=== PATIENT | male | born 1975 | race Caucasian/White ===

== ENCOUNTER 2020-01-02 13:23 | Emergency (ER) | payer SELFPAY ==
[2020-01-02 13:47] VITALS: BP 128/79; PULSE 77; RESP 16; TEMP 36.8; O2SAT 98; BMI 33.7
--- NOTE | 2020-01-02 14:30 | HMH.EDUTC ---
[facility] Disposition Clinical Impression: Sinusitis Qualifiers: Sinusitis location: unspecified location Chronicity: acute Recurrence: non-recurrent Qualified Code(s): J01.90 - Acute sinusitis, unspecified Disposition: Home, Self-Care Condition on Discharge: Good Instructions: Sinusitis, DI for Sinusitis Additional Instructions: Drink plenty of fluids. Take tylenol or ibuprofen for pain or fever. Take the medications as directed. Follow up with your regular doctor. GO TO THE ER FOR ANY WORSENING SYMPTOMS Prescriptions: Brompheniramine/Pseudoephed/Dm [Bromfed Dm Cough Syrup] 5 ml PO Q6HP PRN #240 syrup PRN Reason: Cough Transmission Status: Received by [facility] Fluticasone Propionate [Flonase 50mcg nasal spray 16gm] 1 spr NS BID 30 Days #1 bottle Transmission Status: Received by [facility] Azithromycin [Z-Shar 250mg Tab*] 250 mg PO UD DOSE PK #6 tab Transmission Status: Received by [id number] Referrals: Carl Paiz MD [Primary Care Provider] - Forms: Work/School Release Time of Disposition: 14:36 Medical Decision Making - Medical Records Medical records reviewed: No: I reviewed the patient's medical records. - Ralph Inquiry Pt receiving controlled substance: No Vital Signs: 01/02/20 13:47 Temperature 98.2 F Temperature Source Oral Pulse Rate [Right Brachial] 77 Respiratory Rate 16 Blood Pressure [Right Arm] 128/79 Blood Pressure Mean [Right Arm] 95 Blood Pressure Source [Right Arm] Automatic Cuff Blood Pressure Position [Right Arm] Sitting 02 Sat by Pulse Oximetry 98 Oxygen Delivery Method Room Air [facility] HPI - General Stated complaint: head congestion Time Seen by Provider: 01/02/20 14:00 Mode of Arrival: Ambulatory Source of Information: Patient Limitations: No Limitations Description of Symptoms (Recalled from Triage Doc. by RN): PATIENT C/O SINUS PRESSURE AND PRODUCTIVE COUGH WITH CLEAR-YELLOW SPUTUM. REQUESTING NOTE FOR WORK HEENT Symptoms (Recalled from RN notes): Yes Resp Symptoms (Recalled from RN notes): Yes Skin Symptoms (Recalled from RN notes): No MS Symptoms (Recalled from RN notes): No Functional Status (Recalled from RN notes): WNL - History of Present Illness Provider Complaint: He c/o 2 days of worsening sinus congestion and bilateral ear pain. He denies any cough. He states that every year at this time he gets a sinus infection like this. He denies any known exposure to COVID-19. - Related Data Previous Rx's Medication Instructions Recorded Azithromycin [Z-Shar 250mg Tab*] 250 mg PO UD DOSE PK #6 tab 01/02/20 Brompheniramine/Pseudoephed/Dm 5 ml PO Q6HP PRN #240 syrup 01/02/20 [Bromfed Dm Cough Syrup] Fluticasone Propionate [Flonase 1 spr NS BID 30 Days #1 bottle 01/02/20 50mcg nasal spray 16gm] Allergies Allergy/AdvReac Type Severity Reaction Status Date / Time No Known Allergies Allergy Unverified 04/18/17 14:32 - Worker's Comp Is this a Worker's Comp case?: No [facility] History - Hepatitis A Screen Drug use history?: No High risk sexual behaviors?: No History of sexually transmitted infection?: No Currently employed?: No Childcare worker?: No Do you have indoor plumbing?: Yes Do you have electricity?: Yes Attestation statement:: This patient has been screened for Hepatitis A risk factors. I have reviewed the patient's past medical history: Yes Laterality Cases: Bilateral: Tonsillectomy - Social History Smoking Status: Never smoker Tobacco Type: smokeless tobacco # Packs/Day (cigarettes): 0 Alcohol Intake: never Occupational Status: other ROS Obtained: Yes All systems reviewed & no additional complaints - Constitutional Constitutional: Reports chills, Denies fever(s), Reports poor appetite, Reports malaise - Eyes Eyes: Denies eye discharge - ENT Ears, Nose, Mouth, and Throat: Reports as per HPI - Cardiovascular Cardiovascular: Denies chest pain - Respiratory Respiratory: No
[2020-01-02 14:39] VITALS: BP 128/79; PULSE 77; RESP 16; TEMP 36.8; O2SAT 98
== END 2020-01-02 14:53 | disposition home or self-care (01) ==
PROVIDERS: Emergency Provider Nurse Practitioner Family; PCP Family Medicine
DX: J01.90 Acute sinusitis, unspecified (principal)
CPT/HCPCS: 96372; 99201

== ENCOUNTER 2020-07-07 12:46 | Emergency (ER) | payer OTHER, SELFPAY ==
[2020-07-07 13:07] VITALS: BP 128/77; PULSE 72; RESP 14; TEMP 36.7; O2SAT 100; BMI 34.2
--- NOTE | 2020-07-07 13:11 | HMH.EDUTC ---
[facility] [place] Disposition Clinical Impression: Exposure to COVID-19 virus Sinusitis Qualifiers: Sinusitis location: unspecified location Chronicity: acute Recurrence: non-recurrent Qualified Code(s): J01.90 - Acute sinusitis, unspecified Disposition: Home, Self-Care Condition on Discharge: Good Instructions: Sinusitis, DI for Sinusitis, Preventing the Spread of Coronavirus Discharge Instructions Additional Instructions: Drink plenty of fluids. Take tylenol for pain or fever. Return if you begin to have difficulty breathing. Follow up with your regular doctor. GO TO THE ER FOR ANY WORSENING SYMPTOMS Prescriptions: Benzonatate [Tessalon Perle 100mg Cap] 100 mg PO TIDP PRN #30 cap PRN Reason: Cough Transmission Status: Received by [facility] Azithromycin [Z-Shar 250mg Tab*] 250 mg PO UD DOSE PK #6 tab Transmission Status: Received by [facility] Referrals: Carl Paiz MD [Primary Care Provider] - Forms: Work/School Release Time of Disposition: 13:45 Medical Decision Making - Medical Records Medical records reviewed: No: I reviewed the patient's medical records. - Ralph Inquiry Pt receiving controlled substance: No Vital Signs: 07/07/20 13:07 07/07/20 13:46 Temperature 98.1 F 98.1 F Temperature Source Oral Pulse Rate 72 Pulse Rate [Right Brachial] 72 Respiratory Rate 14 14 Blood Pressure 128/77 Blood Pressure [Right Arm] 128/77 Blood Pressure Mean [Right Arm] 94 Blood Pressure Source [Right Arm] Automatic Cuff Blood Pressure Position [Right Arm] Sitting 02 Sat by Pulse Oximetry 100 Oxygen Delivery Method Room Air [facility] HPI - General Stated complaint: sinus issues Time Seen by Provider: 07/07/20 13:12 Mode of Arrival: Ambulatory Source of Information: Patient Limitations: No Limitations Description of Symptoms (Recalled from Triage Doc. by RN): PATIENT C/O POSSIBLE SINUS INFECTION X 3 DAYS HEENT Symptoms (Recalled from RN notes): No Resp Symptoms (Recalled from RN notes): No Skin Symptoms (Recalled from RN notes): No MS Symptoms (Recalled from RN notes): No Functional Status (Recalled from RN notes): wnl - History of Present Illness Provider Complaint: He states that he has had sinus congestion for the past 3 days. His son tested positive for covid-19 yesterday. - Related Data Previous Rx's Medication Instructions Recorded Azithromycin [Z-Shar 250mg Tab*] 250 mg PO UD DOSE PK #6 tab 07/07/20 Benzonatate [Tessalon Perle 100mg 100 mg PO TIDP PRN #30 cap 07/07/20 Cap] Allergies Allergy/AdvReac Type Severity Reaction Status Date / Time No Known Allergies Allergy Unverified 04/18/17 14:32 - Worker's Comp Is this a Worker's Comp case?: No [facility] History - Hepatitis A Screen Drug use history?: No High risk sexual behaviors?: No History of sexually transmitted infection?: No Currently employed?: No Childcare worker?: No Do you have indoor plumbing?: Yes Do you have electricity?: Yes Attestation statement:: This patient has been screened for Hepatitis A risk factors. I have reviewed the patient's past medical history: Yes Laterality Cases: Bilateral: Tonsillectomy - Social History Smoking Status: Never smoker Tobacco Type: smokeless tobacco # Packs/Day (cigarettes): 0 Alcohol Intake: never Occupational Status: other ROS Obtained: Yes All systems reviewed & no additional complaints - Constitutional Constitutional: Denies chills, Denies fever(s), Reports poor appetite, Reports malaise - Eyes Eyes: Denies eye discharge - ENT Ears, Nose, Mouth, and Throat: Denies dizziness, Denies otalgia, Denies sore throat - Cardiovascular Cardiovascular: Denies chest pain - Respiratory Respiratory: Denies chest congestion, Denies cough, Denies dyspnea, Denies stridor, Denies wheezing - Gastrointestinal Gastrointestingal: Denies: abdominal pain, diarrhea, nausea, vomiting Physical Exam - General General appearance: rafael
[2020-07-07 13:46] VITALS: BP 128/77; PULSE 72; RESP 14; TEMP 36.7; O2SAT 100
--- NOTE | 2020-07-07 17:09 | PC.NURSE ---
PATIENT NOTIFIED OF POSITIVE COVID TEST RESULTS
== END 2020-07-07 13:49 | disposition home or self-care (01) ==
PROVIDERS: Emergency Provider Nurse Practitioner Family; PCP Family Medicine
DX: U07.1 COVID-19 (principal); J01.90 Acute sinusitis, unspecified
CPT/HCPCS: 99202; G0463; U0003

== ENCOUNTER 2020-08-18 18:49 | Emergency (ER) | payer OTHER, SELFPAY ==
[2020-08-18 18:59] VITALS: BP 127/92; PULSE 68; RESP 14; TEMP 36.9; O2SAT 97; BMI 34.8
--- NOTE | 2020-08-18 19:23 | HMH.EDUTC ---
[facility] [place] Disposition Clinical Impression: Viral syndrome Disposition: Home, Self-Care Condition on Discharge: Good Instructions: Preventing the Spread of Coronavirus Discharge Instructions Additional Instructions: Drink plenty of fluids. Take tylenol or ibuprofen for pain or fever. Follow up with your regular doctor. GO TO THE ER FOR ANY WORSENING SYMPTOMS Referrals: Carl Paiz MD [Primary Care Provider] - Forms: Work/School Release Time of Disposition: 19:32 Medical Decision Making - Medical Records Medical records reviewed: No: I reviewed the patient's medical records. - Ralph Inquiry Pt receiving controlled substance: No Vital Signs: 08/18/20 18:59 08/18/20 19:35 Temperature 98.4 F 98.4 F Temperature Source Oral Tympanic Pulse Rate 68 Pulse Rate [Right Brachial] 68 Respiratory Rate 14 14 Blood Pressure 127/92 H Blood Pressure [Right Arm] 127/92 H Blood Pressure Mean [Right Arm] 103 Blood Pressure Source Automatic Cuff Blood Pressure Source [Right Arm] Automatic Cuff Blood Pressure Position Sitting Blood Pressure Position [Right Arm] Sitting 02 Sat by Pulse Oximetry 97 Oxygen Delivery Method Room Air Room Air Orders (Tests/Meds): ORDERS Category Date Time Status Covid-19 Nasal PCR ([facility]) Routine Lab 08/18/20 19:00 Received [facility] [place] HPI - General Stated complaint: COVID TEST Time Seen by Provider: 08/18/20 19:24 Mode of Arrival: Ambulatory Source of Information: Patient Limitations: No Limitations Description of Symptoms (Recalled from Triage Doc. by RN): Covid test - taste & smell off HEENT Symptoms (Recalled from RN notes): No Resp Symptoms (Recalled from RN notes): Yes Skin Symptoms (Recalled from RN notes): No MS Symptoms (Recalled from RN notes): No Functional Status (Recalled from RN notes): wnl - History of Present Illness Provider Complaint: He states that for the past 2 days he has began to feel very bad, have body aches and he has lost his sense of taste and smell. He had covid-19 about 1 1/2 months ago. He denies any shortness of breath and chest pain. - Related Data Previous Rx's Medication Instructions Recorded Azithromycin [Z-Shar 250mg Tab*] 250 mg PO UD DOSE PK #6 tab 07/07/20 Benzonatate [Tessalon Perle 100mg 100 mg PO TIDP PRN #30 cap 07/07/20 Cap] Allergies Allergy/AdvReac Type Severity Reaction Status Date / Time No Known Allergies Allergy Unverified 04/18/17 14:32 - Worker's Comp Is this a Worker's Comp case?: No H History - Hepatitis A Screen Drug use history?: No High risk sexual behaviors?: No History of sexually transmitted infection?: No Currently employed?: No Childcare worker?: No Do you have indoor plumbing?: Yes Do you have electricity?: Yes Attestation statement:: This patient has been screened for Hepatitis A risk factors. I have reviewed the patient's past medical history: Yes Laterality Cases: Bilateral: Tonsillectomy - Social History Smoking Status: Never smoker Tobacco Type: smokeless tobacco # Packs/Day (cigarettes): 0 Alcohol Intake: never Occupational Status: other ROS Obtained: Yes All systems reviewed & no additional complaints - Constitutional Constitutional: Reports system reviewed and no additional complaints, except as docu - Eyes Eyes: Reports system reviewed and no additional complaints, except as docu - ENT Ears, Nose, Mouth, and Throat: Reports system reviewed and no additional complaints, except as docu - Cardiovascular Cardiovascular: Reports system reviewed and no additional complaints, except as docu - Respiratory Respiratory: Reports system reviewed and no additional complaints, except as docu - Gastrointestinal Gastrointestingal: Reports: system reviewed and no additional complaints, except as docu Physical Exam - General General appearance: alert, in no apparent distress - Head Head exam: atraumatic, normocephalic, normal inspection - Eye
[2020-08-18 19:35] VITALS: BP 127/92; PULSE 68; RESP 14; TEMP 36.9; O2SAT 97
== END 2020-08-18 19:35 | disposition home or self-care (01) ==
PROVIDERS: Emergency Provider Nurse Practitioner Family; PCP Family Medicine
DX: Z20.822 Contact with and (suspected) exposure to COVID-19 (principal); B34.9 Viral infection, unspecified; Z86.16 Personal history of COVID-19
CPT/HCPCS: 99202; G0463; U0003

== ENCOUNTER → 2021-01-25 09:20 | Outpatient (CLI) | payer SELFPAY | LOC: HMH.CTC 09:23 | PROVIDERS: PCP Family Medicine; Visit Provider Nurse Practitioner | DX: Z20.822 Contact with and (suspected) exposure to COVID-19 (principal) | CPT/HCPCS: C9803; U0003; U0005 ==

== ENCOUNTER → 2021-02-09 12:05 | Outpatient (CLI) | payer OTHER, SELFPAY | PROVIDERS: PCP Family Medicine; Visit Provider Nurse Practitioner | DX: Z20.822 Contact with and (suspected) exposure to COVID-19 (principal) | CPT/HCPCS: C9803; U0003; U0005 ==

== ENCOUNTER → 2021-05-04 13:55 | Outpatient (CLI) | payer OTHER, SELFPAY | PROVIDERS: Visit Provider Nurse Practitioner | DX: Z20.822 Contact with and (suspected) exposure to COVID-19 (principal) | CPT/HCPCS: C9803; U0003; U0005 ==

== ENCOUNTER 2021-07-13 17:31 | Emergency (ER) | payer SELFPAY ==
[2021-07-13 18:45] VITALS: BP 146/91; PULSE 64; RESP 16; TEMP 36.8; O2SAT 98; BMI 31.3
--- NOTE | 2021-07-13 18:50 | HMH.EDUTC ---
[facility] [place] Disposition Clinical Impression: Sinusitis Qualifiers: Sinusitis location: unspecified location Chronicity: acute Recurrence: non-recurrent Qualified Code(s): J01.90 - Acute sinusitis, unspecified Disposition: Home, Self-Care Condition on Discharge: Good Instructions: DI for Sinusitis Additional Instructions: Drink plenty of fluids. Take tylenol or ibuprofen for pain or fever. Take the medications as directed. Follow up with your regular doctor. GO TO THE ER FOR ANY WORSENING SYMPTOMS Don't start the oral steroids until tomorrow, since you had the shot here today. Prescriptions: Amoxicillin/Potassium Clav [Amox-Clav 875-125 mg Tablet] 1 tab PO BID #20 tab Transmission Status: Pending to [facility] methylPREDNISolone [Medrol] 4 mg PO DIRECTED 6 Days #21 packet Transmission Status: Pending to [facility] guaiFENesin [Mucinex 600mg tablet] 1 - 2 tab PO BIDP PRN #30 tab PRN Reason: Congestion Transmission Status: Pending to [facility] Referrals: Carl Paiz MD [Primary Care Provider] - Forms: Work/School Release Time of Disposition: 19:09 Medical Decision Making - Medical Records Medical records reviewed: No: I reviewed the patient's medical records. - Ralph Inquiry Pt receiving controlled substance: No Vital Signs: 07/13/21 18:45 Temperature 98.2 F Temperature Source Oral Pulse Rate [Left] 64 Respiratory Rate 16 Blood Pressure [Right Arm] 146/91 H Blood Pressure Mean [Right Arm] 109 02 Sat by Pulse Oximetry 98 Orders (Tests/Meds): ED MEDICATIONS Discontinued Medications Generic Name Dose Route Start Last Admin Trade Name Freq PRN Reason Stop Dose Admin Ceftriaxone Sodium 1 gm 07/13/21 18:57 07/13/21 19:05 Ceftriaxone 1gm Vial IM 07/13/21 18:58 1 gm ONCE ONE Administration Lidocaine HCl 0 ml 07/13/21 18:57 07/13/21 19:05 Lidocaine 1% 5ml Pf Vial IM 07/13/21 18:58 2 ml ONCE ONE Administration Methylprednisolone Sodium Succinate 125 mg 07/13/21 18:57 07/13/21 19:05 Methylprednisolone Sod Succ 125mg Vial IM 07/13/21 18:58 125 mg ONCE ONE Administration [facility] [place] HPI - General Stated complaint: SINUS INFECTION Time Seen by Provider: 07/13/21 18:50 Mode of Arrival: Ambulatory Source of Information: Patient Limitations: No Limitations Description of Symptoms (Recalled from Triage Doc. by RN): pt c/o sinus pressure and pain x1wk. HEENT Symptoms (Recalled from RN notes): Yes Resp Symptoms (Recalled from RN notes): No Skin Symptoms (Recalled from RN notes): No MS Symptoms (Recalled from RN notes): No Functional Status (Recalled from RN notes): wnl - History of Present Illness Provider Complaint: He states that he has had a sinus infection and sinus congestion for the past 1 week. He refuses a covid-19 test. - Related Data Previous Rx's Medication Instructions Recorded Azithromycin [Z-Shar 250mg Tab*] 250 mg PO UD DOSE PK #6 tab 07/07/20 Benzonatate [Tessalon Perle 100mg 100 mg PO TIDP PRN #30 cap 07/07/20 Cap] Amoxicillin/Potassium Clav 1 tab PO BID #20 tab 07/13/21 [Amox-Clav 875-125 mg Tablet] guaiFENesin [Mucinex 600mg tablet] 1 - 2 tab PO BIDP PRN #30 tab 07/13/21 methylPREDNISolone [Medrol] 4 mg PO DIRECTED 6 Days #21 07/13/21 packet Allergies Allergy/AdvReac Type Severity Reaction Status Date / Time No Known Allergies Allergy Unverified 04/18/17 14:32 - Worker's Comp Is this a Worker's Comp case?: No [facility] History - Hepatitis A Screen Drug use history?: No High risk sexual behaviors?: No History of sexually transmitted infection?: No Currently employed?: No Childcare worker?: No Do you have indoor plumbing?: Yes Do you have electricity?: Yes Attestation statement:: This patient has been screened for Hepatitis A risk factors. I have reviewed the patient's past medical history: Yes Laterality Cases: Bilateral: Tonsillectomy - Social
[2021-07-13 19:18] VITALS: BP 146/91; PULSE 64; RESP 16; TEMP 36.8
== END 2021-07-13 19:19 | disposition home or self-care (01) ==
PROVIDERS: Emergency Provider Nurse Practitioner Family; PCP Family Medicine
DX: J01.90 Acute sinusitis, unspecified (principal); F17.290 Nicotine dependence, other tobacco product, uncomplicated; Z79.52 Long term (current) use of systemic steroids
CPT/HCPCS: 96372; 99213; G0463; J0696

== ENCOUNTER 2021-09-17 07:03 | Emergency (ER) | payer SELFPAY ==
[2021-09-17 07:04] VITALS: BP 124/81; PULSE 51; RESP 18; TEMP 36.9; O2SAT 97; BMI 33.2
--- NOTE | 2021-09-17 07:16 | XR_ITS ---
FINAL REPORT CLINICAL HISTORY: Productive cough, chest congestion, hx of bronchit COMPARISON: January 29, 2016 FINDINGS: Two views of the chest were obtained. The heart size and pulmonary vascularity are within normal limits. The mediastinum is normal. No acute pulmonary abnormality is identified. There is no pneumothorax. The bony thorax is intact. IMPRESSION: No active cardiopulmonary disease. Reviewed, Interpreted and Dictated by Tyler Villegas III, MD Transcribed by Jack Chu Authenticated by Tyler Villegas III, MD on 09/17/2021 07:47:37 AM [facility]
--- NOTE | 2021-09-17 07:17 | PC.NURSE ---
Notified rad of CXR
--- NOTE | 2021-09-17 07:26 | HMH.EDURI ---
ED Disposition Clinical Impression: Bronchitis Disposition: Home, Self-Care Condition on Discharge: Good Instructions: DI for Acute Bronchitis Additional Instructions: and use meds plus fluids and see pcp for follow up Prescriptions: Minocycline HCl [Minocycline HCl 100mg Tab*] 100 mg PO BID #20 tab Transmission Status: Pending to [facility] predniSONE [Prednisone 20mg Tab] 20 mg PO BID #10 tab Transmission Status: Pending to [facility] Referrals: Carl Paiz MD [Primary Care Provider] - Forms: Work/School Release - Critical Care Critical Care Time: No Attestation: On 09/17/21, the high probability of a clinically significant, sudden or life threatening deterioration of the following system(s) required my full and direct attention, intervention and personal management. The time I documented below is in addition to time spent performing reported procedures but includes the following listed in this critical care notation. Medical Decision Making - Medical Records Medical records reviewed: Yes: I reviewed the patient's medical records. - Ralph Inquiry Pt receiving controlled substance: No Vital Signs: 09/17/21 07:04 09/17/21 07:48 Temperature 98.5 F Temperature Source Oral Pulse Rate 50 L Pulse Rate [Right Radial] 51 L Respiratory Rate 18 Blood Pressure [Right Arm] 124/81 Blood Pressure Mean [Right Arm] 95 Blood Pressure Source [Right Arm] Automatic Cuff Blood Pressure Position [Right Arm] Sitting 02 Sat by Pulse Oximetry 97 Oxygen Delivery Method Room Air - Lab Data Lab results reviewed: Yes: I reviewed the patient's lab results. Lab Results 09/17/21 07:30: SARS-CoV-2 (PCR) Not detected, Influenza A Untype (PCR) Not detected, Influenza Type B (PCR) Not detected Orders (Tests/Meds): ED MEDICATIONS Discontinued Medications Generic Name Dose Route Start Last Admin Trade Name Freq PRN Reason Stop Dose Admin Albuterol Sulfate 2 puff 09/17/21 07:35 09/17/21 07:47 Albuterol-Hfa 90mcg/Puff Inhaler 8gm 09/17/21 07:36 2 puff ONCE ONE Administration Albuterol/Ipratropium 3 ml 09/17/21 07:34 09/17/21 07:47 Ipratropium/Albuterol 3 Ml Neb 09/17/21 07:35 3 ml ONCE ONE Administration Miscellaneous 1 unit 09/17/21 07:34 09/17/21 07:47 Aerochamber/Optihaler 09/17/21 07:35 1 unit ONCE ONE Administration Miscellaneous 1 unit 09/17/21 07:34 Aerochamber/Optihaler 09/17/21 07:35 ONCE ONE - Radiology Data #1 Image(s): Chest Image Reviewed: Yes I have reviewed radiologist's interpretation Preliminary Findings: Normal/NAD URI/Sore Throat HPI - General Chief Complaint: Upper Respiratory Infection Stated Complaint: wheezing in chest, cough Time Seen by Provider: 09/17/21 07:26 Mode of Arrival: Ambulatory Source of Information: Patient, Medical Record Limitations: No Limitations Description of Symptoms (Recalled from ER Triage Doc. by RN): Pt c/o productive cough and chest congestion X2-3 days. Reports hx of bronchitis - History of Present Illness HPI Narrative: uri sx with prod cough - yellow sputum - hx of bronchitis in past MD Complaint: cough, nasal congestion Onset (ago): day(s) Severity: moderate Description of mucous: yellow Able to tolerate fluids by mouth: Yes Associated symptoms: denies other symptoms Treatments prior to arrival: none - Related Data Previous Rx's Medication Instructions Recorded Azithromycin [Z-Shar 250mg Tab*] 250 mg PO UD DOSE PK #6 tab 07/07/20 Benzonatate [Tessalon Perle 100mg 100 mg PO TIDP PRN #30 cap 07/07/20 Cap] Amoxicillin/Potassium Clav 1 tab PO BID #20 tab 07/13/21 [Amox-Clav 875-125 mg Tablet] guaiFENesin [Mucinex 600mg tablet] 1 - 2 tab PO BIDP PRN #30 tab 07/13/21 methylPREDNISolone [Medrol] 4 mg PO DIRECTED 6 Days #21 07/13/21 packet Minocycline HCl [Minocycline HCl 100 mg PO BID #20 tab 09/17/21 100mg Tab*] predn
[2021-09-17 07:35] LABS: Coronavirus 19, PCR Not Detected (NotDetected); Influenza A, PCR Not Detected (NotDetected); Influenza B, PCR Not Detected (NotDetected)
--- NOTE | 2021-09-17 07:37 | PC.NURSE ---
Pt returned from rad and this nurse notified RT of duoneb order
--- NOTE | 2021-09-17 07:44 | PC.NURSE ---
RT at BS
[2021-09-17 07:48] VITALS: PULSE 50; PULSE 58
[2021-09-17 09:05] VITALS: BP 124/78; PULSE 49; RESP 16; TEMP 36.9; O2SAT 97
== END 2021-09-17 09:06 | disposition home or self-care (01) ==
PROVIDERS: Emergency Provider Emergency Medicine; PCP Family Medicine
DX: J20.9 Acute bronchitis, unspecified (principal); E03.9 Hypothyroidism, unspecified
CPT/HCPCS: 71046; 99283; C9803; U0003; U0005

== ENCOUNTER 2021-09-23 08:22 | Emergency (ER) | payer SELFPAY ==
--- NOTE | 2021-09-23 08:24 | PC.NURSE ---
DANII schmidt at BS
--- NOTE | 2021-09-23 08:30 | ECG_ITS ---
APPROVED REPORT Exam: Resting ECG HR:48 bpm ECG Measurements Heart Rate 48 AXES ID 150 P 71 QRSd 100 QRS 73 QT 441 T 69 QTc 408 Conclusion SINUS BRADYCARDIA Late R wave progression ABNORMAL ECG UNCONFIRMED REPORT Electronically signed by : Chris Worrell MD 09/24/2021 10:31:37
--- NOTE | 2021-09-23 08:32 | HMH.EDGENADL ---
ED Disposition Clinical Impression: Bradycardia, Elevated blood pressure reading Hypothyroidism Qualifiers: Hypothyroidism type: unspecified Qualified Code(s): E03.9 - Hypothyroidism, unspecified Disposition: Home, Self-Care Condition on Discharge: Good Additional Instructions: Change thyroid medication to 150 mcg daily as prescribed. Records her blood pressure daily, same time each day. Follow-up with primary care for further blood pressure evaluation. Follow-up with primary care within the next 2 weeks. You are being provided with a list of physicians available for follow-up of your condition. Please call a physician on this list to arrange a follow-up appointment. Prescriptions: Levothyroxine Sodium [Synthroid 150mcg (0.15mg) tablet] 150 mcg PO DAILY #30 tab Transmission Status: Pending to [facility] Referrals: Carl Paiz MD [Primary Care Provider] - - Critical Care Critical Care Time: No Attestation: On , the high probability of a clinically significant, sudden or life threatening deterioration of the following system(s) required my full and direct attention, intervention and personal management. The time I documented below is in addition to time spent performing reported procedures but includes the following listed in this critical care notation. Medical Decision Making - Ralph Inquiry Pt receiving controlled substance: No Vital Signs: 09/23/21 08:38 09/23/21 08:48 09/23/21 09:10 Temperature 98.2 F Temperature Source Oral Pulse Rate 44 L 46 L Pulse Rate [Left Radial] 48 L Respiratory Rate 18 13 16 Blood Pressure 118/73 112/72 Blood Pressure [Right Arm] 133/86 Blood Pressure Mean [Right Arm] 101 Blood Pressure Source Automatic Cuff Automatic Cuff Blood Pressure Position Sitting Sitting 02 Sat by Pulse Oximetry 98 97 95 Oxygen Delivery Method Room Air Room Air Room Air 09/23/21 09:30 Temperature Temperature Source Pulse Rate 44 L Pulse Rate [Left Radial] Respiratory Rate 13 Blood Pressure 108/63 L Blood Pressure [Right Arm] Blood Pressure Mean [Right Arm] Blood Pressure Source Automatic Cuff Blood Pressure Position Sitting 02 Sat by Pulse Oximetry 95 Oxygen Delivery Method Room Air - Lab Data Lab Results 09/23/21 08:36: WBC 6.6, RBC 4.59 L, Hgb 14.3, Hct 41.5 L, MCV 90.3, MCH 31.2, MCHC 34.6, RDW 14.1, Plt Count 245, MPV 7.7, Neut % (Auto) 55.3, Lymph % (Auto) 34.8, Wallace % (Auto) 6.3, Eos % (Auto) 2.3, Baso % (Auto) 1.3, Neut # (Auto) 3.7, Lymph # (Auto) 2.3, Wallace # (Auto) 0.4, Eos # (Auto) 0.2, Baso # (Auto) 0.1 09/23/21 08:36: Sodium 140, Potassium 3.6, Chloride 103, Carbon Dioxide 27, Anion Gap 13.6, BUN 18, Creatinine 1.20, Estimated Creat Clear 91, Estimated GFR 66, Est GFR ( Amer) 80, Glucose 98, Calcium 9.1, Total Bilirubin 0.5, AST 31, ALT 25, Alkaline Phosphatase 61, Troponin I < 0.01, Total Protein 6.7, Albumin 4.3, Globulin 2.4, Albumin/Globulin Ratio 1.8, TSH 83.00 H 09/23/21 08:36: Free T4 0.49 L Result diagrams: 09/23/21 08:36 09/23/21 08:36 Orders (Tests/Meds): ED MEDICATIONS Generic Name Dose Route Start Last Admin Trade Name Freq PRN Reason Stop Dose Admin Sodium Chloride 10 ml 09/23/21 08:46 Sodium Chloride 0.9% 10ml Flush Syringe IV 10/23/21 08:45 NEEDED PRN Maintain IV Site ORDERS Category Date Time Status Chest XR 2 view (NOT portable) [XR chest 2V] Stat Exams 09/23/21 08:46 Taken Troponin I Q3H Lab 09/23/21 12:00 Ordered Troponin I Q3H Lab 09/23/21 15:00 Ordered - Radiology Data #1 Image(s): Chest Image Reviewed: Yes I reviewed the patient's radiology image Preliminary Findings: Normal/NAD - ECG Data Tracing #1 EKG interpreted by Rai Vang MD: Rhythm: sinus bradycardia Rate: 48 Zullinger: normal Ectopy: none Conduction: normal ST Segment Changes: none T Wave Changes: none Q Waves: Lateral No evidence of acute ischemia or injury No prior
[2021-09-23 08:38] VITALS: BP 133/86; PULSE 48; RESP 18; TEMP 36.8; O2SAT 98; BMI 25.1
--- NOTE | 2021-09-23 08:46 | XR_ITS ---
FINAL REPORT CLINICAL HISTORY: bradycardia/palpitations COMPARISON: 09/17/2021 FINDINGS: PA and lateral views of the chest are obtained. The cardiac and mediastinal silhouettes are within normal limits. The lungs are clear. There is no pleural effusion, pneumothorax, or acute osseous abnormality. IMPRESSION: No radiographic evidence of acute cardiac or pulmonary disease. Reviewed, Interpreted and Dictated by Adeline Garber MD Transcribed by Ofelia Zhao Authenticated by Adeline Garber MD on 09/23/2021 10:04:[address] [facility]
--- NOTE | 2021-09-23 08:47 | PC.NURSE ---
ED MD at
[2021-09-23 08:48] VITALS: BP 118/73; PULSE 44; RESP 13; O2SAT 97
--- NOTE | 2021-09-23 08:52 | PC.NURSE ---
patient to radiology with plumbing service technician; patient ambulatory
[2021-09-23 08:56] LABS: Basophils # 0.1 K/mm3 (0-0.2); Basophils % 1.3 % (0.1-2.0); Eosinophils # 0.2 K/mm3 (0.0-0.4); Eosinophils % 2.3 % (0.1-12.0); Hematocrit 41.5 % (42.0-52.0); Hemoglobin 14.3 g/dL (14.1-18.0); Lymphocytes # 2.3 K/mm3 (0.7-4.5); Lymphocytes % 34.8 % (10-50); Mean Corpuscular HGB Conc 34.6 g/dL (31.8-35.4); Mean Corpuscular Hemoglobin 31.2 pg (27.0-31.2); Mean Corpuscular Volume 90.3 fl (80-94); Mean Platelet Volume 7.7 fl (7.4-10.4); Monocytes # 0.4 K/mm3 (0.1-1.0); Monocytes % 6.3 % (1.7-9.3); Neutrophils # 3.7 K/mm3 (1.8-7.8); Neutrophils % 55.3 % (37.0-80.0); Platelet Count 245 K/mm3 (142-424); Red Blood Count 4.59 M/mm3 (4.60-6.20); Red Cell Distribution Width 14.1 % (11.5-17.5); White Blood Count 6.6 K/mm3 (4.8-10.8)
--- NOTE | 2021-09-23 08:56 | PC.NURSE ---
pt ambulatory back to ED room 7 from radiology with communications technologist; no complications
[2021-09-23 09:00] LABS: Alanine Aminotransferase 25 U/L (12-78); Albumin Level 4.3 g/dl (3.5-5.0); Albumin/Globulin Ratio 1.8 (1.1-1.8); Alkaline Phosphatase 61 U/L (38-126); Anion Gap 13.6 mEq/L (5-15); Aspartate Amino Transferase 31 U/L (17-59); Bilirubin,Total 0.5 mg/dl (0.2-1.3); Blood Urea Nitrogen 18 mg/dl (9-20); Calcium 9.1 mg/dl (8.4-10.2); Carbon Dioxide 27 mmol/L (22.0-30.0); Chloride 103 mmol/L (98-107); Creatinine Clearance Estimated 91 mL/min (50-200); Estimated Glomerular Filt Rate 66 ml/min (>60); GFR (African American) 80 ML/MIN (>60); Globulin 2.4 g/dL (1.3-3.2); Glucose 98 mg/dl (74-100); Potassium 3.6 mmoL/L (3.5-5.1); Sodium 140 mmol/L (136-145); Total Protein,Serum 6.7 g/dl (6.3-8.2)
[2021-09-23 09:10] VITALS: BP 112/72; PULSE 46; RESP 16; O2SAT 95
[2021-09-23 09:21] LABS: Free T4 (Free Thyroxine) 0.49 ng/dl (0.78-2.19)
[2021-09-23 09:23] LABS: Troponin I < 0.01 ng/ml (0.00-0.034)
[2021-09-23 09:30] VITALS: BP 108/63; PULSE 44; RESP 13; O2SAT 95
--- NOTE | 2021-09-23 09:34 | PC.NURSE ---
ED MD at speaking with patient
[2021-09-23 09:51] VITALS: BP 122/72; PULSE 49; RESP 17; TEMP 36.8; O2SAT 99
== END 2021-09-23 10:20 | disposition home or self-care (01) ==
PROVIDERS: Emergency Provider Emergency Medicine; PCP Family Medicine
DX: E03.9 Hypothyroidism, unspecified (principal); R00.1 Bradycardia, unspecified; R03.0 Elevated blood-pressure reading, without diagnosis of hypertension; Z79.52 Long term (current) use of systemic steroids
CPT/HCPCS: 71046; 80053; 84439; 84443; 84484; 85025; 93005; 99285

== ENCOUNTER 2022-02-18 09:42 | Emergency (ER) | payer BC, SELFPAY ==
[2022-02-18 10:03] VITALS: BP 126/83; PULSE 56; RESP 17; TEMP 36.9; O2SAT 99; BMI 29.8
[2022-02-18 10:11] LABS: UTC Strep Screen (Rapid) Negative (Negative)
--- NOTE | 2022-02-18 10:16 | EXP.UTC ---
Discharge Plan Disposition Patient Disposition: Home, Self-Care Condition: Good Prescriptions Prescriptions: New methylprednisolone [Medrol (Shar)] 4 mg tablets,dose pack 4 mg PO DIRECTED Qty: 21 0RF amoxicillin-pot clavulanate 875-125 mg Tablet 1 tab PO Q12H Qty: 20 0RF No Action methylprednisolone 4 MG tablets,dose pack 4 mg PO DIRECTED 6 Days Qty: 21 0RF amoxicillin-pot clavulanate 1 EACH tablet 1 tab PO BID Qty: 20 0RF guaifenesin 600 MG tablet extended release 12hr 1 - 2 tab PO BIDP PRN (Reason: Congestion) Qty: 30 0RF azithromycin 250 MG tablet 250 mg PO UD DOSE PK Qty: 6 0RF Rx Instructions: Take two (2) tablets today, then one (1) tablet days #2 thru #5 benzonatate 100 MG capsule 100 mg PO TIDP PRN (Reason: Cough) Qty: 30 0RF prednisone 20 MG tablet 20 mg PO BID Qty: 10 0RF minocycline 100 MG tablet 100 mg PO BID Qty: 20 0RF levothyroxine 150 MCG tablet 150 mcg PO DAILY Qty: 30 0RF Referrals Follow up/Referrals: Carl Paiz MD [Primary Care Provider] - See instructions Activity Restrictions/Add. Instructions Additional Instructions/Restrictions: Take all medication as prescribed until gone COVID test pending Clinical Impressions Clinical Impression: Sinusitis Stand Alone Forms Stand Alone Forms: Work/School Release Instructions Patient Instructions: DI for Sinusitis [place]charge ED [place] Nikki Haro [facility] [place] General Stated complaint: Head Congestion Mode of Arrival: Ambulatory Source of Information: Patient Limitations: No Limitations Time Seen by Provider: 02/18/22 10:18 Description of Symptoms (Recalled from Triage Doc. by RN): C/O congestion since Monday and then developed sore throat and bodyaches on Monday HEENT Symptoms (Recalled from RN notes): Yes (congestion, sore throat) Resp Symptoms (Recalled from RN notes): No Skin Symptoms (Recalled from RN notes): No MS Symptoms (Recalled from RN notes): Yes (bodyaches) Functional Status (Recalled from RN notes): n/a History of Present Illness Provider Complaint: Congestion, sore throat, headache, fever, body aches X 4 days. No vomiting or diarrhea. Cough occasionally productive. Blood streaked this am. Patient does not smoke. Has had high blood pressure in the past and also takes Synthroid for hypothyroidism and wasn't sure what he could safely take OTC Onset (ago): day(s) Relieving factors: none Exacerbating factors: none Associated symptoms: cough, fever/chills and headaches Treatments prior to arrival: none Related Data Previous Rx's Medication Instructions Recorded azithromycin 250 mg tablet 250 mg PO UD DOSE PK #6 tabs 07/07/20 benzonatate 100 mg capsule 100 mg PO TIDP PRN Cough #30 caps 07/07/20 amoxicillin 875 mg-potassium 1 tab PO BID #20 tabs 07/13/21 clavulanate 125 mg tablet guaifenesin 600 mg tablet, 1 - 2 tab PO BIDP PRN Congestion 07/13/21 extended release 12 hr #30 tabs methylprednisolone 4 mg tablets in 4 mg PO DIRECTED 6 days #21 07/13/21 a dose pack packets minocycline 100 mg tablet 100 mg PO BID #20 tabs 09/17/21 prednisone 20 mg tablet 20 mg PO BID #10 tabs 09/17/21 levothyroxine 150 mcg tablet 150 mcg PO DAILY #30 tabs 09/23/21 amoxicillin 875 mg-potassium 1 tab PO Q12H #20 tabs 02/18/22 clavulanate 125 mg tablet methylprednisolone 4 mg tablets in 4 mg PO DIRECTED #21 tabs 02/18/22 a dose pack (Medrol (Shar)) Allergies Allergy/AdvReac Type Severity Reaction Status Date / Time No Known Allergies Allergy Unverified 04/18/17 14:32 Worker's Comp Is this a Worker's Comp case?: No PFSH PFSH Social History Smoking Status: Never smoker alcohol intake: never current occupational status: other Travel in the last 8 weeks: None ROS Obtained: Yes All systems reviewed & no additional complaints except as documented Constitutional Constitutional: Reports fatigue, Reports fever(s) and Reports headach
[2022-02-18 10:46] VITALS: BP 126/83; PULSE 56; RESP 17; TEMP 36.9; O2SAT 99
== END 2022-02-18 10:47 | disposition home or self-care (01) ==
PROVIDERS: Emergency Provider Physician Assistant; PCP Family Medicine
DX: J32.9 Chronic sinusitis, unspecified (principal)
CPT/HCPCS: 87880; 99212; C9803; G0463; U0003; U0005

== ENCOUNTER 2022-12-15 06:49 | Emergency (ER) | payer SELFPAY ==
[2022-12-15] VITALS (8 sets, daily range): BP systolic 105–137; BP diastolic 78–93; PULSE 42–54; RESP 11–20; TEMP 36.4–36.6; O2SAT 96–99; BMI 31.4
--- NOTE | 2022-12-15 07:04 | ECG_ITS ---
APPROVED REPORT Exam: Resting ECG HR:51 bpm ECG Measurements Heart Rate 51 AXES OH 123 P 15 QRSd 92 QRS 57 QT 440 T 52 QTc 417 Conclusion SINUS BRADYCARDIA BORDERLINE ECG UNCONFIRMED REPORT Electronically signed by : Chris Worrell MD 12/16/2022 08:41:23
--- NOTE | 2022-12-15 07:07 | HMH.EDGENADL ---
Discharge Plan Disposition Patient Disposition: Home, Self-Care Condition: Good Chief Complaint: Recheck/Abnormal Lab/Rx Prescriptions Prescriptions: No Action levothyroxine 125 mcg Tablet 125 mcg PO DAILY Referrals Follow up/Referrals: Carl Paiz MD [Primary Care Provider] - See instructions Activity Restrictions/Add. Instructions Additional Instructions/Restrictions: You were evaluated in the emergency department today. Please take your levothyroxine at home as prescribed. Follow-up closely with your primary care provider over the next 48 hours for reassessment of your thyroid levels and kidney function. Make sure that you are orally hydrating at home is much as possible. Return to the emergency department for any new or worsening symptoms. Clinical Impressions Clinical Impression: Severe hypothyroidism, Rhabdomyolysis, SOFI (acute kidney injury), Hypothyroid myopathy Instructions Patient Instructions: Acute Kidney Injury, DI for Hypothyroidism Discharge ED Provider: Clementine Thomas General Adult HPI General Chief complaint: Recheck/Abnormal Lab/Rx Stated complaint: Not feeling well possible potassium level off Time Seen by Provider: 12/15/22 07:02 Mode of Arrival: Ambulatory Source of Information: Patient Limitations: No Limitations Description of Symptoms (Recalled from ER Triage Doc. by RN): pt states that he is feeling off today has been having some potassium issues for the past year. and states he has been having some leg cramping this past week. History of Present Illness HPI narrative: This patient is a 47-year-old male with a history of overactive thyroid status post radiation with resultant hypothyroidism, bradycardia, and hypokalemia presented to the emergency department for evaluation with concern because he is feeling off. He states that he has been feeling not himself for a few days and has been having muscle cramps in his lower extremities intermittently. He woke up today feeling nauseous as well. He states that this feels similar to when his potassium was low in the past. He has had some intermittent diarrhea over the last several weeks, but he denies any other new concerns as of late. He denies any fevers, chills, chest pain, shortness of breath, cough, congestion, abdominal pain, vomiting, rashes, or swelling. Of note, he reports that he is noncompliant with his thyroid medication. Related Data Home Medications Medication Instructions Recorded Confirmed levothyroxine 125 mcg tablet 125 mcg PO DAILY thyroid disease 12/15/22 12/15/22 Allergies Allergy/AdvReac Type Severity Reaction Status Date / Time No Known Allergies Allergy Unverified 04/18/17 14:32 [facility] Disclaimer: The information contained in this section may have been updated after the patient was seen, as this information can be updated by other users. Social History Smoking Status: Former smoker alcohol intake: never current occupational status: other Travel in the last 8 weeks: None ROS Obtained: Yes All systems reviewed & no additional complaints except as documented Physical Exam General General appearance: alert and in no apparent distress Head Head exam: atraumatic and normocephalic Eye Eye exam: Present normal appearance, PERRL and EOMI ENT ENT exam: Present normal exam, normal oropharynx, mucous membranes moist and normal external ear exam Neck Neck exam: Present normal inspection, full ROM and trachea midline; Absent tenderness Chest Chest inspection: Present normal inspection and symmetric chest wall rise; Absent tenderness Respiratory Respiratory exam: Present normal lung sounds bilaterally; Absent respiratory distress, wheezes, stridor or accessory muscle use Cardiovascular Cardiovascular exam: Present normal rhythm, bradycardia and normal heart sounds Abdominal Exam Abdominal exam: Present soft; Absent distention, tenderness or guarding Extremities Exam Extremities exam:
[2022-12-15 07:13] LABS: Basophils # 0.1 K/mm3 (0-0.2); Basophils % 0.9 % (0.1-2.0); Eosinophils # 0.2 K/mm3 (0.0-0.4); Eosinophils % 2.2 % (0.1-12.0); Hematocrit 43.5 % (42.0-52.0); Hemoglobin 14.3 g/dL (14.1-18.0); Lymphocytes # 2.4 K/mm3 (0.7-4.5); Lymphocytes % 28.8 % (10-50); Mean Corpuscular HGB Conc 32.9 g/dL (31.8-35.4); Mean Corpuscular Hemoglobin 29.4 pg (27.0-31.2); Mean Corpuscular Volume 89.2 fl (80-94); Mean Platelet Volume 7.6 fl (7.4-10.4); Monocytes # 0.4 K/mm3 (0.1-1.0); Monocytes % 5.3 % (1.7-9.3); Neutrophils # 5.1 K/mm3 (1.8-7.8); Neutrophils % 62.7 % (37.0-80.0); Platelet Count 218 K/mm3 (142-424); Red Blood Count 4.88 M/mm3 (4.60-6.20); White Blood Count 8.1 K/mm3 (4.8-10.8)
[2022-12-15 07:15] LABS: Chloride 100 mmol/L (98-107); Potassium 3.8 mmoL/L (3.5-5.1); Sodium 141 mmol/L (136-145)
[2022-12-15 07:17] LABS: Blood Urea Nitrogen 20 mg/dl (9-20); Creatinine Clearance Estimated 79 mL/min (50-200); Estimated Glomerular Filt Rate 44 ml/min (>60); GFR (African American) 53 ML/MIN (>60)
[2022-12-15 07:18] LABS: Alanine Aminotransferase 32 U/L (12-78); Albumin Level 4.5 g/dl (3.5-5.0); Albumin/Globulin Ratio 1.7 (1.1-1.8); Alkaline Phosphatase 73 U/L (38-126); Anion Gap 13.8 mEq/L (5-15); Aspartate Amino Transferase 38 U/L (17-59); Bilirubin,Total 0.7 mg/dl (0.2-1.3); Calcium 9.3 mg/dl (8.4-10.2); Carbon Dioxide 31 mmol/L (22.0-30.0); Creatine Kinase 239 U/L (55-170); Globulin 2.7 g/dL (1.3-3.2); Glucose 95 mg/dl (74-100); Magnesium 2.2 mg/dl (1.6-2.3); Total Protein,Serum 7.2 g/dl (6.3-8.2)
--- NOTE | 2022-12-15 07:30 | PC.NURSE ---
Rounded on pt, started IV Fluids. Updated him of labs completed thus far. Also placed pt on awake overnight monitor d/t hr in 40s. MD aware or HR.
[2022-12-15 07:35] LABS: T4 (Thyroxine) 3.3 ug/dl (5.53-11.0)
== END 2022-12-15 09:17 | disposition home or self-care (01) ==
PROVIDERS: Emergency Provider Emergency Medicine; PCP Family Medicine
DX: M62.82 Rhabdomyolysis (principal); E03.9 Hypothyroidism, unspecified; N17.9 Acute kidney failure, unspecified; Z87.891 Personal history of nicotine dependence; R00.1 Bradycardia, unspecified
CPT/HCPCS: 80053; 82550; 83735; 84436; 84443; 85025; 93005; 96360; 99285

== ENCOUNTER 2022-12-31 15:18 | Emergency (ER) | payer SELFPAY ==
[2022-12-31 15:30] VITALS: BP 139/79; PULSE 75; RESP 20; TEMP 37.4; O2SAT 99; BMI 32.1
--- NOTE | 2022-12-31 15:40 | EXP.UTC ---
Discharge Plan Disposition Patient Disposition: Home, Self-Care Condition: Good Prescriptions Prescriptions: No Action levothyroxine 125 mcg Tablet 125 mcg PO DAILY Referrals Follow up/Referrals: Carl Paiz MD [Primary Care Provider] - See instructions Activity Restrictions/Add. Instructions Additional Instructions/Restrictions: *Monitor Temp, Over the counter Motrin or Tylenol as directed/as needed Tylenol every 4 hours and Motrin every 6 hours (as long as your family doctor has told you that you can take it) for fever or pain. and straight to ER if unable to lower temp less than 101.0 after medication given *Warm salt water gargles may help to soothe the throat *Throat Lozenges? *Warm fluids like tea with honey may help to soothe the throat? *Sleep elevated *Humidifier/Vaporizer Follow up IMMEDIATELY for new or worsening symptoms or no Noticeable improvement over the next 48-72 hours. 911 for difficulty breathing or swallowing You were tested for today for COVID19 your test result should be back in the next 24-48 hours, you may check your results on the [facility] [employer] Portal for the results Clinical Impressions Clinical Impression: Encounter for laboratory testing for COVID-19 virus Stand Alone Forms Stand Alone Forms: Work/School Release Instructions Patient Instructions: DI for COVID-19 (Suspected or Confirmed ), Preventing the Spread of Coronavirus Discharge Instructions, DI for Viral Syndrome Discharge ED Provider: [facility] [place] HPI General Stated complaint: covid +, home test, deepak, body aches Mode of Arrival: Ambulatory Source of Information: Patient and Spouse Limitations: No Limitations Time Seen by Provider: 12/31/22 15:40 Description of Symptoms (Recalled from Triage Doc. by RN): PATIENT C/O RUNNY NOSE, CONGESTION, BODY ACHES AND SOA. REPORTS POSITIVE AT HOME COVID TEST AND IS NEEDING PCR FOR WORK HEENT Symptoms (Recalled from RN notes): Yes Resp Symptoms (Recalled from RN notes): Yes Skin Symptoms (Recalled from RN notes): No MS Symptoms (Recalled from RN notes): No Functional Status (Recalled from RN notes): WNL History of Present Illness Provider Complaint: Patient states that he went fishing this morning and felt ok after he got home he laid down and took a nap then when he woke up he was feeling bad States that he was feeling achy, nasal congestion and unable to breath out of his nose and over all just feeling bad so he took a home COVID test and it was positive so he came in to get an official one for work Related Data Home Medications Medication Instructions Recorded Confirmed levothyroxine 125 mcg tablet 125 mcg PO DAILY thyroid disease 12/15/22 12/15/22 Allergies Allergy/AdvReac Type Severity Reaction Status Date / Time No Known Allergies Allergy Unverified 04/18/17 14:32 Worker's Comp Is this a Worker's Comp case?: No [facility] Disclaimer: The information contained in this section may have been updated after the patient was seen, as this information can be updated by other users. Social History Smoking Status: Former smoker alcohol intake: never current occupational status: other Travel in the last 8 weeks: None ROS Obtained: Yes All systems reviewed & no additional complaints except as documented and Yes Systems reviewed as appropriate & no additional complaints except as documented Constitutional Constitutional: Reports system reviewed and no additional complaints, except as documented, Reports as per HPI, Reports body ache and Reports fatigue ENT Ears, Nose, Mouth, and Throat: Reports system reviewed and no additional complaints, except as documented, Reports as per HPI, Reports nasal congestion and Reports nasal discharge Cardiovascular Cardiovascular: Reports system reviewed and no additional complaints, except as documented and Reports as per HPI Respiratory Respiratory: Reports system rev
[2022-12-31 15:46] VITALS: BP 139/79; PULSE 75; RESP 20; TEMP 37.4; O2SAT 99
== END 2022-12-31 15:53 | disposition home or self-care (01) ==
PROVIDERS: Emergency Provider Nurse Practitioner; PCP Family Medicine
DX: U07.1 COVID-19 (principal); R53.81 Other malaise; Z87.891 Personal history of nicotine dependence
CPT/HCPCS: 99212; 99213; G0463

== ENCOUNTER 2023-02-27 08:01 | Emergency (ER) | payer BC, SELFPAY ==
[2023-02-27 08:10] VITALS: BP 118/79; PULSE 59; RESP 18; TEMP 36.6; O2SAT 97; BMI 32.8
--- NOTE | 2023-02-27 08:24 | XR_ITS ---
FINAL REPORT CLINICAL HISTORY: cough productive cough of yellow-green s.o.a. wheezing COMPARISON: 09/23/2021 FINDINGS: 2 views of the chest were obtained . The heart is normal in size. The mediastinum is within normal limits. There is mild left base atelectasis or pneumonia. There is no pneumothorax. Osseous structures are unremarkable. IMPRESSION: Mild left base atelectasis or pneumonia. Reviewed, Interpreted and Dictated by Tyler Villegas III, MD Transcribed by Patsy Singh Authenticated and [facility]
--- NOTE | 2023-02-27 08:38 | EXP.UTC ---
Discharge Plan Disposition Patient Disposition: Home, Self-Care Condition: Good Prescriptions Prescriptions: New benzonatate [benzonatate] 100 mg capsule 100 mg PO TIDP PRN (Reason: Cough) Qty: 30 0RF amoxicillin-pot clavulanate 875-125 mg Tablet 1 tab PO Q12H Qty: 20 0RF guaifenesin [Mucinex] 600 mg tablet extended release 12hr 600 - 1,200 mg PO BIDP PRN (Reason: Congestion) Qty: 30 0RF methylprednisolone 4 mg Tablets,Dose Pack 4 mg PO DIRECTED Qty: 21 0RF No Action levothyroxine 125 mcg Tablet 125 mcg PO DAILY Referrals Follow up/Referrals: Carl Paiz MD [Primary Care Provider] - See instructions Activity Restrictions/Add. Instructions Additional Instructions/Restrictions: Drink plenty of fluids. Take tylenol or ibuprofen for pain or fever. Take the medications as directed. Follow up with your regular doctor. GO TO THE ER FOR ANY WORSENING SYMPTOMS Don't start the oral steroids until tomorrow, since you had the shot here today. Clinical Impressions Clinical Impression: Sinusitis, Bronchitis Stand Alone Forms Stand Alone Forms: Work/School Release Instructions Patient Instructions: Sinusitis, DI for Sinusitis Discharge ED Provider: Dev Rajan [facility] General Stated complaint: congestion, cough diarrhea Mode of Arrival: Ambulatory Source of Information: Patient Limitations: No Limitations Time Seen by Provider: 02/27/23 08:38 Description of Symptoms (Recalled from Triage Doc. by RN): chest congestion. Pt states that he feels like hes wheezing. HEENT Symptoms (Recalled from RN notes): Yes Resp Symptoms (Recalled from RN notes): No Skin Symptoms (Recalled from RN notes): No MS Symptoms (Recalled from RN notes): No Functional Status (Recalled from RN notes): n/a History of Present Illness Provider Complaint: He states that for the past 1 week he has had sinus congestion and a cough. Related Data Home Medications Medication Instructions Recorded Confirmed levothyroxine 125 mcg tablet 125 mcg PO DAILY thyroid disease 12/15/22 02/27/23 Previous Rx's Medication Instructions Recorded amoxicillin 875 mg-potassium 1 tab PO Q12H #20 tabs 02/27/23 clavulanate 125 mg tablet benzonatate 100 mg capsule 100 mg PO TIDP PRN Cough #30 caps 02/27/23 guaifenesin 600 mg tablet, 600 - 1,200 mg PO BIDP PRN 02/27/23 extended release 12 hr (Mucinex) Congestion #30 tabs methylprednisolone 4 mg tablets in 4 mg PO DIRECTED #21 tabs 02/27/23 a dose pack Allergies Allergy/AdvReac Type Severity Reaction Status Date / Time No Known Allergies Allergy Verified 02/27/23 08:26 Worker's Comp Is this a Worker's Comp case?: No PFSH [facility] Disclaimer: The information contained in this section may have been updated after the patient was seen, as this information can be updated by other users. Social History Smoking Status: Former smoker tobacco type: smokeless tobacco alcohol intake: never current occupational status: other Travel in the last 8 weeks: None ROS Obtained: Yes All systems reviewed & no additional complaints except as documented Constitutional Constitutional: Reports poor appetite Eyes Eyes: Reports system reviewed and no additional complaints, except as documented ENT Ears, Nose, Mouth, and Throat: Reports as per HPI Cardiovascular Cardiovascular: Reports system reviewed and no additional complaints, except as documented and Denies chest pain Respiratory Respiratory: Denies shortness of breath, Denies chest congestion, Reports cough, Denies stridor and Denies wheezing Gastrointestinal Gastrointestingal: Reports system reviewed and no additional complaints, except as documented; Denies abdominal pain, diarrhea or vomiting Musculoskeletal Musculoskeletal: Reports system reviewed and no additional complaints, except as documented and Denies arthralgias Integumentary/Breasts S
[2023-02-27 09:30] VITALS: BP 118/79; PULSE 59; RESP 18; TEMP 36.6; O2SAT 97
== END 2023-02-27 09:15 | disposition home or self-care (01) ==
PROVIDERS: Emergency Provider Nurse Practitioner Family; PCP Family Medicine
DX: J01.90 Acute sinusitis, unspecified (principal); J20.9 Acute bronchitis, unspecified; Z87.891 Personal history of nicotine dependence
CPT/HCPCS: 71046; 96372; 99212; 99214; G0463; J0696

== ENCOUNTER 2023-03-28 09:07 | Emergency (ER) | payer BC, SELFPAY ==
[2023-03-28 09:25] VITALS: BP 150/79; PULSE 57; RESP 18; TEMP 36.7; O2SAT 96; BMI 33.2
--- NOTE | 2023-03-28 09:28 | EXP.UTC ---
Discharge Plan Disposition Patient Disposition: Home, Self-Care Condition: Good Prescriptions Prescriptions: New benzonatate [benzonatate] 100 mg capsule 100 mg PO TIDP PRN (Reason: Cough) Qty: 30 0RF ondansetron 4 mg Tablet,Disintegrating 4 mg PO Q8H PRN (Reason: Nausea) Qty: 12 0RF No Action levothyroxine 125 mcg Tablet 125 mcg PO DAILY Referrals Follow up/Referrals: Carl Paiz MD [Primary Care Provider] - See instructions Activity Restrictions/Add. Instructions Additional Instructions/Restrictions: Drink plenty of fluids. Take tylenol or ibuprofen for pain or fever. Take the medications as directed. Follow up with your regular doctor. GO TO THE ER FOR ANY WORSENING SYMPTOMS Clinical Impressions Clinical Impression: Exposure to COVID-19 virus, Viral syndrome Stand Alone Forms Stand Alone Forms: Work/School Release Instructions Patient Instructions: DI for Viral Syndrome, Coronavirus Disease 2019, Preventing the Spread of Coronavirus Discharge Instructions Discharge ED Provider: Dev Rajan [facility] General Stated complaint: runny nose,diarrhea,no taste Time Seen by Provider: 03/28/23 09:27 History of Present Illness Provider Complaint: He states that for the past 2 days he has had chills, body aches and low grade fever. Related Data Home Medications Medication Instructions Recorded Confirmed levothyroxine 125 mcg tablet 125 mcg PO DAILY thyroid disease 12/15/22 03/28/23 Previous Rx's Medication Instructions Recorded benzonatate 100 mg capsule 100 mg PO TIDP PRN Cough #30 caps 03/28/23 ondansetron 4 mg disintegrating 4 mg PO Q8H PRN Nausea #12 tabs 03/28/23 tablet Allergies Allergy/AdvReac Type Severity Reaction Status Date / Time No Known Allergies Allergy Verified 03/28/23 09:50 [facility] Disclaimer: The information contained in this section may have been updated after the patient was seen, as this information can be updated by other users. Social History Smoking Status: Former smoker tobacco type: smokeless tobacco alcohol intake: never current occupational status: other Travel in the last 8 weeks: None ROS Obtained: Yes All systems reviewed & no additional complaints except as documented Constitutional Constitutional: Reports chills and Reports fever(s) Eyes Eyes: Denies eye discharge ENT Ears, Nose, Mouth, and Throat: Reports as per HPI Cardiovascular Cardiovascular: Denies chest pain Respiratory Respiratory: Denies chest congestion and Reports cough Gastrointestinal Gastrointestingal: Reports nausea; Denies abdominal pain, constipation, cramping, diarrhea or vomiting Musculoskeletal Musculoskeletal: Denies arthralgias Integumentary/Breasts Skin/Breast: Denies rash Neurologic Neurologic: Denies paresthesias Physical Exam General General appearance: alert and in no apparent distress Head Head exam: atraumatic, normocephalic and normal inspection Eye Eye exam: Present normal appearance, PERRL and EOMI ENT ENT exam: Present normal exam, normal oropharynx, mucous membranes moist, TM's normal bilaterally and normal external ear exam Neck Neck exam: Present normal inspection, full ROM and trachea midline; Absent meningismus or lymphadenopathy Chest Chest inspection: Present normal inspection and symmetric chest wall rise; Absent tenderness Respiratory Respiratory exam: Present normal lung sounds bilaterally; Absent respiratory distress Cardiovascular Cardiovascular exam: Present regular rate and normal rhythm; Absent JVD Abdominal Exam Abdominal exam: Present soft and normal bowel sounds; Absent distention, tenderness or guarding Extremities Exam Extremities exam: Present normal inspection, full ROM and normal capillary refill; Absent calf tenderness Back Exam Back exam: Present normal inspection; Absent tenderness Neurological Exam Neurological exam: Present aler
[2023-03-28 10:27] VITALS: BP 150/79; PULSE 57; RESP 18; TEMP 36.7; O2SAT 96
== END 2023-03-28 10:27 | disposition home or self-care (01) ==
PROVIDERS: Emergency Provider Nurse Practitioner Family; PCP Family Medicine
DX: R50.9 Fever, unspecified (principal); R19.7 Diarrhea, unspecified; R43.9 Unspecified disturbances of smell and taste; R09.81 Nasal congestion; B34.9 Viral infection, unspecified; Z20.822 Contact with and (suspected) exposure to COVID-19; Z87.891 Personal history of nicotine dependence; R11.0 Nausea
CPT/HCPCS: 87635; 99212; 99214; G0463

== ENCOUNTER 2023-04-11 05:28 | Emergency (ER) | payer BC, SELFPAY ==
[2023-04-11 05:29] VITALS: BP 138/84; PULSE 59; RESP 16; TEMP 36.6; O2SAT 98; BMI 32.5
--- NOTE | 2023-04-11 05:41 | PC.NURSE ---
Visual acuity completed, pt does not use corrective lens, both eyes are 20/18, right eye 20/40 and left eye 20/40, MD spence
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
[2023-04-11 06:18] VITALS: BP 125/77; PULSE 55; RESP 18; TEMP 36.6
== END 2023-04-11 06:34 | disposition home or self-care (01) ==
PROVIDERS: Emergency Provider Emergency Medicine; PCP Family Medicine
DX: H16.133 Photokeratitis, bilateral (principal); W89.0XXA Exposure to welding light (arc), initial encounter
CPT/HCPCS: 99283

== ENCOUNTER 2023-06-15 09:39 | Emergency (ER) | payer OTHER, SELFPAY ==
--- NOTE | 2023-06-15 09:49 | ECG_ITS ---
APPROVED REPORT Exam: Resting ECG HR:54 bpm ECG Measurements Heart Rate 54 AXES [place] 165 P 61 QRSd 105 QRS 61 QT 403 T 60 QTc 390 Conclusion SINUS BRADYCARDIA BORDERLINE ECG UNCONFIRMED REPORT Electronically signed by : Chris Worrell MD 06/15/2023 19:56:44
[2023-06-15 09:52] VITALS: BP 141/91; PULSE 59; RESP 18; TEMP 36.5; O2SAT 99; BMI 33.5
[2023-06-15 10:00] VITALS: BP 119/75; PULSE 60; O2SAT 96
--- NOTE | 2023-06-15 10:17 | ED_ITS ---
Discharge Plan Disposition Patient Disposition: Home, Self-Care Prescriptions Prescriptions: New meclizine 25 mg tablet 25 mg PO TID PRN (Reason: dizziness) Qty: 20 0RF No Action levothyroxine 125 mcg Tablet 125 mcg PO DAILY benzonatate [benzonatate] 100 mg capsule 100 mg PO TIDP PRN (Reason: Cough) Qty: 30 0RF ondansetron 4 mg Tablet,Disintegrating 4 mg PO Q8H PRN (Reason: Nausea) Qty: 12 0RF Referrals Follow up/Referrals: Carl Paiz MD [Primary Care Provider] - See instructions Activity Restrictions/Add. Instructions Additional Instructions/Restrictions: Your symptoms are consistent with BPPV as discussed with you. This should be self-limiting you may follow-up with primary care doctor as needed. Given the fact that you are also concerned about thyroid dysfunction TSH and free T4 were sent but would not change any emergency management you may follow-up with primary care doctor regarding this. Specifically you do not have any evidence of a thyroid emergency mainly thyrotoxic storm or myxedematous coma. Therefore the lab tests would not change any emergency management. You may call back later for results or follow-up with primary care doctor regarding this test result. Clinical Impressions Clinical Impression: Benign paroxysmal positional vertigo Discharge ED Provider: Viviane Cortes General Adult HPI General Chief complaint: Dizziness Stated complaint: Low blood pressure, dizzy, disoriented Time Seen by Provider: 06/15/23 10:07 Mode of Arrival: Ambulatory Source of Information: Patient Limitations: No Limitations Description of Symptoms (Recalled from ER Triage Doc. by RN): patient reports he feels disoriented, almost as if he is in fog and no energy for the last three days. Patient reports he has an saray on his phone that said his HRV was 12 and was concerned that was too low. Patient also reports his HR was 57 this morning. History of Present Illness HPI narrative: Is a 48-year-old male presenting today with multiple complaints. States over the last 3 days he has felt dizzy. When asked to describe what this meant to him he states that he has a rotary sensation where things are spinning specifically when he is moving his head and changes position. When he lies still at rest it is not happening. No other changes in coordination etc. He did state that this morning he had some heart rate variability with a heart rate in the 50s in the 80s which he looked at his saray on his watch or phone and this told him that this was abnormal and he came to emergency department. No chest pain shortness of breath no other neurologic symptoms. Other than hyperthyroidism no other medical problems. Related Data Home Medications Medication Instructions Recorded Confirmed levothyroxine 125 mcg tablet 125 mcg PO DAILY thyroid disease 12/15/22 03/28/23 Previous Rx's Medication Instructions Recorded benzonatate 100 mg capsule 100 mg PO TIDP PRN Cough #30 caps 03/28/23 ondansetron 4 mg disintegrating 4 mg PO Q8H PRN Nausea #12 tabs 03/28/23 tablet meclizine 25 mg tablet 25 mg PO TID PRN dizziness #20 tabs 06/15/23 Allergies Allergy/AdvReac Type Severity Reaction Status Date / Time No Known Allergies Allergy Verified 03/28/23 09:50 [facility] Disclaimer: The information contained in this section may have been updated after the patient was seen, as this information can be updated by other users. Social History Smoking Status: Never smoker alcohol intake: never current occupational status: other Travel in the last 8 weeks: None ROS Obtained: Yes All systems reviewed & no additional complaints except as documented Physical Exam General General appearance: alert Respiratory Respiratory exam: Present normal lung sounds bilaterally; Absent respiratory distress Cardiovascular Cardiovascular exam: Present regular rate and normal rhythm Abdominal Exam Abdominal exam: Present soft; Absent distention or tenderness Neurological Exam Neurological exam: Present alert, oriented X3, CN II-XII intact, normal gait and other (Posterior circulation finger-nose [id number] and rapid alternating movements and gait and Romberg all normal); Absent motor sensory deficit Medical Decision Making Ralph Inquiry Pt receiving controlled substance: No Vital Signs: 06/15/23 09:52 06/15/23 10:00 06/15/23 10:20 Temperature 97.7 F Temperature Source Oral Pulse Rate 60 53 L Pulse Rate [Right Brachial] 59 L Respiratory Rate 18 Blood Pressure 119/75 117/82 Blood Pressure [Right Arm] 141/91 H Blood Pressure Mean 89 89 Blood Pressure Mean [Right Arm] 107 Blood Pressure Source [Right Arm] Automatic Cuff Blood Pressure Position [Right Arm] Sitting 02 Sat by Pulse Oximetry 99 96 96 Oxygen Delivery Method Room Air 06/15/23 11:00 Temperature Temperature Source Pulse Rate 48 L Pulse Rate [Right Brachial] Respiratory Rate 20 Blood Pressure 114/79 Blood Pressure [Right Arm] Blood Pressure Mean 85 Blood Pressure Mean [Right Arm] Blood Pressure Source [Right Arm] Blood Pressure Position [Right Arm] 02 Sat by Pulse Oximetry 97 Oxygen Delivery Method Lab Data Lab results reviewed: Yes I reviewed the patient's lab results. Lab Results 06/15/23 10:43: WBC 7.3, RBC 4.61, Hgb 14.2, Hct 41.3 L, MCV 89.7, MCH 30.8, MCHC 34.4, RDW 14.6, Plt Count 203, MPV 8.1, Neut % (Auto) 62.5, Lymph % (Auto) 30.5, [place] % (Auto) 4.9, Eos % (Auto) 1.8, Baso % (Auto) 0.4, Neut # (Auto) 4.6, Lymph # (Auto) 2.2, [place] # (Auto) 0.4, Eos # (Auto) 0.1, Baso # (Auto) 0.0, Sodium 141, Potassium 4.1, Chloride 95 L, Carbon Dioxide 32 H, Anion Gap 18.1 H, BUN 19, Creatinine 1.40 H, Estimated Creat Clear 102, Estimated GFR 55 L, Est GFR ( Amer) 66, Glucose 95, Calcium 9.2, Total Bilirubin 0.9, AST 32, ALT 23, Alkaline Phosphatase 58, Total Protein 7.3, Albumin 4.8, Globulin 2.5, Albumin/Globulin Ratio 1.9 H 06/15/23 10:43 06/15/23 10:43 Orders (Tests/Meds): ED MEDICATIONS Discontinued Medications Generic Name Dose Route Start Last Admin Trade Name Freq PRN Reason Stop Dose Admin Lactated Ringer's 1,000 mls @ 999 mls/hr 06/15/23 10:30 06/15/23 10:36 Lactated Ringer's 1000 Ml Bag IV 06/15/23 11:30 999 mls/hr .Q1H1M TIA Administration Meclizine HCl 25 mg 06/15/23 10:16 06/15/23 10:35 Meclizine 25mg Tablet PO 06/15/23 10:17 25 mg ONCE ONE Administration ORDERS Category Date Time Status CBC w/Auto Diff [Complete Blood Count Auto Diff] Stat Lab 06/15/23 10:43 Completed CMP [Comprehensive Metabolic Panel] Stat Lab 06/15/23 10:43 Completed Free T4 (Free Thyroxine) Stat Lab 06/15/23 11:40 Ordered TSH [Thyroid Stimulating Hormone] Stat Lab 06/15/23 11:40 Ordered Medical Decision Narrative: Patient is a 48-year-old male present today with symptoms consistent with vertigo. His symptoms are only with movement and seem to be peripheral. 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 Working diagnosis is BPPV. 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 Will reassess after fluids meclizine and labs. Reassessment patient's neurologic exam remains normal. He is feeling significantly better with meclizine and IV fluids. Discussed with him he can try some Tariq maneuvers at home which she is aware of. No indication for any CT imaging or concern for central processes. He is concerned about his thyroid dysfunction and I sent a TSH and a free T4 who involved follow-up with but this is not consistent with a thyrotoxic emergency such as thyrotoxic storm or myxedematous coma. Patient was discharged in improved and stable condition. Critical Care Critical Care Time Critical Care Time: No
[2023-06-15 10:20] VITALS: BP 117/82; PULSE 53; O2SAT 96
[2023-06-15] MEDS: MECLIZINE 25MG TABLET 25 MG PO (10:35)
[2023-06-15] MEDS: LACTATED RINGERS 1000ML 1,000 ML 999 ML IV (10:36)
[2023-06-15 10:50] LABS: Basophils % 0.4 % (0.1-2.0); Eosinophils # 0.1 K/mm3 (0.0-0.4); Eosinophils % 1.8 % (0.1-12.0); Hematocrit 41.3 % (42.0-52.0); Hemoglobin 14.2 g/dL (14.1-18.0); Lymphocytes # 2.2 K/mm3 (0.7-4.5); Lymphocytes % 30.5 % (10-50); Mean Corpuscular HGB Conc 34.4 g/dL (31.8-35.4); Mean Corpuscular Hemoglobin 30.8 pg (27.0-31.2); Mean Corpuscular Volume 89.7 fl (80-94); Mean Platelet Volume 8.1 fl (7.4-10.4); Monocytes # 0.4 K/mm3 (0.1-1.0); Monocytes % 4.9 % (1.7-9.3); Neutrophils # 4.6 K/mm3 (1.8-7.8); Neutrophils % 62.5 % (37.0-80.0); Platelet Count 203 K/mm3 (142-424); Red Blood Count 4.61 M/mm3 (4.60-6.20); Red Cell Distribution Width 14.6 % (11.5-17.5); White Blood Count 7.3 K/mm3 (4.8-10.8)
[2023-06-15 11:00] VITALS: BP 114/79; PULSE 48; RESP 20; O2SAT 97
[2023-06-15 11:15] LABS: Alanine Aminotransferase 23 U/L (12-78); Albumin Level 4.8 g/dl (3.5-5.0); Albumin/Globulin Ratio 1.9 (1.1-1.8); Alkaline Phosphatase 58 U/L (38-126); Anion Gap 18.1 mEq/L (5-15); Aspartate Amino Transferase 32 U/L (17-59); Bilirubin,Total 0.9 mg/dl (0.2-1.3); Blood Urea Nitrogen 19 mg/dl (9-20); Calcium 9.2 mg/dl (8.4-10.2); Carbon Dioxide 32 mmol/L (22.0-30.0); Chloride 95 mmol/L (98-107); Creatinine Clearance Estimated 102 mL/min (50-200); Estimated Glomerular Filt Rate 55 ml/min (>60); GFR (African American) 66 ML/MIN (>60); Globulin 2.5 g/dL (1.3-3.2); Glucose 95 mg/dl (74-100); Potassium 4.1 mmoL/L (3.5-5.1); Sodium 141 mmol/L (136-145); Total Protein,Serum 7.3 g/dl (6.3-8.2)
--- NOTE | 2023-06-15 11:40 | PC.NURSE ---
Rounded on pt. No needs or complaints voiced at this time. Call light within reach.
[2023-06-15 12:01] VITALS: BP 130/80; PULSE 50; RESP 16; TEMP 36.6; O2SAT 97
[2023-06-15 12:32] LABS: Free T4 (Free Thyroxine) 0.32 ng/dl (0.78-2.19)
== END 2023-06-15 12:03 | disposition home or self-care (01) ==
PROVIDERS: Emergency Provider Student in an Organized Health Care Education/Training Program; PCP Family Medicine
DX: H81.10 Benign paroxysmal vertigo, unspecified ear (principal); R00.1 Bradycardia, unspecified; E03.9 Hypothyroidism, unspecified
CPT/HCPCS: 80053; 84439; 84443; 85025; 93005; 96360; 99284

== ENCOUNTER 2023-12-05 17:00 | Outpatient (CLI) | payer OTHER, SELFPAY ==
[2023-12-05 16:55] LABS: Basophils # 0.1 K/mm3 (0-0.2); Eosinophils # 0.2 K/mm3 (0.0-0.4); Eosinophils % 2.7 % (0.1-12.0); Hematocrit 38.5 % (42.0-52.0); Hemoglobin 13.7 g/dL (14.1-18.0); Lymphocytes # 2.2 K/mm3 (0.7-4.5); Lymphocytes % 34.2 % (10-50); Mean Corpuscular HGB Conc 35.6 g/dL (31.8-35.4); Mean Corpuscular Hemoglobin 31.8 pg (27.0-31.2); Mean Corpuscular Volume 89.2 fl (80-94); Mean Platelet Volume 7.6 fl (7.4-10.4); Monocytes # 0.3 K/mm3 (0.1-1.0); Monocytes % 5.2 % (1.7-9.3); Neutrophils # 3.6 K/mm3 (1.8-7.8); Neutrophils % 56.9 % (37.0-80.0); Platelet Count 233 K/mm3 (142-424); Red Blood Count 4.32 M/mm3 (4.60-6.20); Red Cell Distribution Width 14.3 % (11.5-17.5); White Blood Count 6.3 K/mm3 (4.8-10.8)
[2023-12-05 17:37] LABS: Alanine Aminotransferase 22 U/L (12-78); Albumin Level 4.4 g/dl (3.5-5.0); Albumin/Globulin Ratio 1.8 (1.1-1.8); Alkaline Phosphatase 57 U/L (38-126); Anion Gap 13.8 mEq/L (5-15); Aspartate Amino Transferase 25 U/L (17-59); Bilirubin,Total 0.5 mg/dl (0.2-1.3); Blood Urea Nitrogen 16 mg/dl (9-20); Calcium 9.4 mg/dl (8.4-10.2); Carbon Dioxide 27 mmol/L (22.0-30.0); Chloride 106 mmol/L (98-107); Chol/HDL Ratio 4.8 (1-3.5); Cholesterol 171 mg/dl (140-200); Estimated Glomerular Filt Rate 59 ml/min (>60); GFR (African American) 72 ML/MIN (>60); Globulin 2.5 g/dL (1.3-3.2); Glucose 92 mg/dl (74-100); HDL Cholesterol 36 mg/dl (40-60); Potassium 3.8 mmoL/L (3.5-5.1); Sodium 143 mmol/L (136-145); Total Protein,Serum 6.9 g/dl (6.3-8.2); Triglycerides 169 mg/dl (30-150); VLDL Cholesterol 34 mg/dL (0-40)
[2023-12-05 17:49] LABS: Direct LDL Cholesterol 87.13 mg/dL (100-129)
[2023-12-05 17:54] LABS: 25-OH Vitamin D, Total 36.1 ng/mL (30-100)
== END 2023-12-05 23:59 | disposition home or self-care (01) ==
LOC: LAB.DROPOF 17:00
PROVIDERS: PCP Physician Assistant; Visit Provider Physician Assistant
DX: E03.9 Hypothyroidism, unspecified (principal); G73.7 Myopathy in diseases classified elsewhere; R03.0 Elevated blood-pressure reading, without diagnosis of hypertension; Z68.32 Body mass index [BMI] 32.0-32.9, adult; E66.9 Obesity, unspecified
CPT/HCPCS: 80050; 80053; 80061; 82306; 84443; 85025

== ENCOUNTER 2024-04-13 09:17 | Emergency (ER) | payer OTHER, SELFPAY ==
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
[2024-04-13 10:05] VITALS: BP 127/71; PULSE 54; RESP 20; TEMP 36.6; O2SAT 98; BMI 32.5
[2024-04-13 10:59] VITALS: BP 127/71; PULSE 54; RESP 20; TEMP 36.6
[2024-04-13] MEDS: EYE WASH IRRIGATION SOLN 118ML BOTTLE 120 ML OP (11:04)
[2024-04-13] MEDS: TETRACAINE 0.5% OPTH SOL 15ML OP (11:04)
== END 2024-04-13 11:04 | disposition home or self-care (01) ==
PROVIDERS: Emergency Provider Nurse Practitioner Family
DX: H16.133 Photokeratitis, bilateral (principal)
CPT/HCPCS: 99212; G0381

== ENCOUNTER 2024-11-26 09:05 | Emergency (ER) | payer OTHER, SELFPAY ==
--- OUTSIDE RECORDS SUMMARY | 2010-01-22 07:29 | XMS_ITS | Continuity of Care Document ---
Author Organization [facility] Address [address] [facility], [address] Phone Care Team Providers Care Practice Architect Name Role Phone Unavailable Unavailable Unavailable Medications Medication Instructions Dosage Effective Dates (start - stop) Status Comments Astepro 0.15 % (205.5 mcg) Nasal [place] spray 1 spray (205.5MCG) by Intranasal route 2 times every day in each nostril - Active Norel SR 8 mg-50 mg-40 mg-325 mg 12 hr Tab take 1 tablet by ORAL route every 12 hours as needed for CONGESTION AND COUGH - Active Omnaris 50 mcg Nasal [place] inhale 2 spray (100MCG) by Intranasal route every day in each nostril as needed 100 MCG - No Longer Active amoxicillin 500 mg Tab take 1 tablet (500MG) by ORAL route every 12 hours 500 MG - No Longer Active Procedures Procedure Date Offic/outpt E&m Estab Mod-hi 2 10 Dexamethasone LA Per 1mg Admin Of Injection Bromfed Per 10 Mg Dex 4 Per 1mg (Qty 4) Offic/outpt E&m Estab Low-mod 8 Tetanus Tox Absorbed-im/jet In 08 Xray; Hand - 3 Views Minimum Offic/outpt E&m Estab Low-mod Oct-200 6 Toradol Per 15 Mg Offic/outpt E&m Estab Low-mod Oct-10-200 6 Dex 4 Per 1 Mg Oct Dex 8 Per 1 Mg Oct-10-2006 Toradol Per 15 Mg Exam Level 3 Est Patient Tetanus Tox Absorbed-im/jet In Advance Directives Directive Yes / No Effective Date File Name No Information Encounters Encounter Description Practice Location Reason(s) For Visit Diagnoses Date Provider Providers Copied on Encounter [facility], [address] [place] [address] Roxi Morales, , [id number], [place] tel:[phone] [facility] No Information No Information Offic/outpt E&m Estab Mod-hi 2 [facility], [address] [place] [address] Roxi Morales, [place], [id number], [place] tel:[phone] [facility] sinusitis (chief complaint) URI - Acute, Unspecified No Information Offic/outpt E&m Estab Lowmod [facility], [address] [place] [address] Roxi Morales, , [id number], [place] tel:[phone] [facility] No Information No Information Offic/outpt E&m Estab Lowmod [facility], [address] [place] [address] Roxi Morales, [place], [id number], [place] tel:[phone] [facility] No Information Celina Benoit. [address] [place] [address] Roxi Horner, [place], [id number], [place]. tel:[phone] Offic/outpt E&m Estab Lowmod [facility], [address] [place] [address] Roxi Morales, [place], [id number], [place] tel:[phone] [facility] No Information Celina Benoit. [address] [place] [address] Roxi Horner, [place], [id number], [place]. tel:[phone] Exam Level 3 Est Patient [facility], [address] [place] [address] Roxi Morales, [place], [id number], [place] tel:[phone] [facility] No Information Celina Benoit. [address] [place] [address] Roxi Horner, [place], [id number], [place]. tel:[phone] [facility], [address] [facility] [address], Roxi Lofton [place], [id number], [place] tel:[phone] [facility] back pain (chief complaint) No Information No Information Family History Family Member Type Diagnosis Age At Onset No Information Payers Payer name Insurance type Covered libertarian ID Authoriza tinikita(s) [employer] [id number] Social History Type Description Quantity Date Captured Comments Sex Male Smoking Status No Information Chief Complaint And Reason For Visit No Information Reason For Referral Reason For Referral No Information History Of Present Illness Encounter Date Complaint History Of Prese nt Illness No Information Functional Status Date Functional Assessmen t No Information Instructions Date Instruction Additional Infor mation No Information Assessments Type Assessment Date No Information Patient Care Teams Name Effective Dates (start - stop) Status Members No Information
[2024-11-26] VITALS (10 sets, daily range): BP systolic 113–147; BP diastolic 75–93; PULSE 42–55; RESP 14–21; TEMP 36.6–36.8; O2SAT 95–100; BMI 29.8
--- NOTE | 2024-11-26 09:13 | ECG_ITS ---
APPROVED REPORT Exam: Resting ECG HR:50 bpm ECG Measurements Heart Rate 50 AXES AK 152 P 74 QRSd 97 QRS 78 QT 403 T 67 QTc 377 Conclusion SINUS BRADYCARDIA NONSPECIFIC T-WAVE ABNORMALITY BORDERLINE ECG UNCONFIRMED REPORT Electronically signed by : GORDON LEZAMA, 11/27/2024 05:57:30
--- OUTSIDE RECORDS SUMMARY | 2024-11-26 09:17 | XMS_ITS | Clinical Summary ---
Author Organization [facility] Address [address] [place] [address] Phone Care Team Providers Care Awning Spreader Name Role Phone Carl Paiz MD Primary Care Provider Karl Penn Ud, MD Unavailable [phone] Allergies No known active allergies Medications LEVOthyroxine (SYNTHROID) 125 mcg Oral TabletIndication s:Hypothyroidism , unspecified type Take 1 Tablet by mouth daily. 30 Tablet 11 03/14/2022 Active meloxicam (MOBIC) 15 mg Oral TabletIndication s:Chronic midline low back pain without sciatica Take 1 Tablet by mouth daily. 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 Immunizations Immunization Administration Dates Next Due Influenza Vaccine Quadrivalent 02/01/2019 Surgical History Surgery Date Site/Laterality Comments TONSILLECTOMY Medical History Medical History Date Comments Hypokalemia Hyperthyroidism Family History Medical History Relation Name Comments High Blood Pressure Father guillan barre Father Thyroid Disease Maternal Aunt Depression Mother Diabetes Mother Heart Attack Paternal Aunt High Blood Pressure Paternal Aunt Heart Attack Paternal Grandfather Heart Disease Paternal Grandfather Heart Attack Paternal Uncle Relation Name Status Comments Father Alive Maternal Aunt Mother Alive Paternal Aunt Paternal Grandfather Paternal Uncle Social History Tobacco Use Types Packs/Day Years Used Date Smoking Tobacco: Never Smokeless Tobacco: Current Snuff, Chew Tobacco Cessation:Ready to Q uit: Not Asked; Counseling Given: Not Answered Alcohol Use Standard Drinks/Week Comments No 0 (1 standard drink = 0.6 oz pur e alcohol) PHQ-2 Answer Date Recorded PHQ-2 Total Score 0 03/14/2022 Sexually Active Control Partners Comments Yes Female Sex and Gender Information Value Date Recorded Sex Assigned at Not on file Legal Sex Male 5:43 AM EST Gender Identity Not on file Sexual Orientation Not on file Obstetrics History Last Filed Vital Signs Vital Sign Reading Time Taken Comments Blood Pressure 112/68 03/14/2022 2:55 PM EST Pulse 53 10/02/2019 6:11 AM EDT Temperature 36.5 C (97.7 F) 03/14/2022 2:55 PM EST Respiratory Rate 18 10/02/2019 6:11 AM EDT Oxygen Saturation 96% 10/02/2019 6:11 AM EDT Inhaled Oxygen Concentration - - Weight 106.1 kg (234 lb) 03/14/2022 2:55 PM EST Height 177.8 cm (5' 10 ) 03/14/2022 2:55 PM EST Body Mass Index 33.58 03/14/2022 2:55 PM EST Plan of Treatment Health Maintenance Due Date Last Done Comments DTaP/TDaP/Td (1 - Tdap) 1996 Hepatitis B Vaccine (1 of 3 - 19+ 3-dose series) 1996 Cologuard 2022 Colon Cancer Screening 2022 Colonoscopy 2022 FIT 2022 Sigmoidoscopy 2022 Virtual Colonography 2022 Annual Wellness Exam 03/14/2023 03/14/2022, 07/11/2017 COVID-19 Vaccine (1 - 2023-2 5 season) 2023 Influenza Vaccine (#1) 2024 , 07/11/2017 (Declined) Meningococcal B Vaccine Aged Out No l onger eligible based on patient's age to complete this topic Pneumococcal Vaccine 0-49 Aged Out No longer eligible based on patient's age to complete this topic Goals Goal Patient Goal Type Associated Problems Recent Progress Patient-Stated? Author Maintain a healthy diet, exercise regularly and maintain an ideal body weight General No La Nena Feliz RMA Stay Tobacco Free Lifestyle No Amalia Stone RN Care Teams Awning Spreader Relationship Specialty Start Date End Date Carl Paiz MD [address] [place] [address] PCP - General Family Medicine 07/11/17 Karl Penn Ud, MD [address] [place] [address] Internal Medicine-Nephrology 03/14/18
--- NOTE | 2024-11-26 09:21 | ED_ITS ---
Discharge Plan Disposition Patient Disposition: Home, Self-Care Prescriptions Prescriptions: New ondansetron 4 mg tablet,disintegrating 4 mg PO Q6H PRN (Reason: nausea and vomiting) Qty: 14 0RF No Action levothyroxine 150 mcg tablet 150 mcg PO DAILY Qty: 30 2RF Artificial Tears (PF) Dropperette 2 drp ophthalmic (eye) QID 5 Days Qty: 32 0RF erythromycin 5 mg/gram (0.5 %) ointment 1 applic ophthalmic (eye) Q4H 7 Days Qty: 3.5 0RF Referrals Follow up/Referrals: Provider,Referral, MD [Primary Care Provider, Medical] - See instructions Activity Restrictions/Add. Instructions Additional Instructions/Restrictions: Continue to hydrate well by drinking plenty of fluids, including water, Pedialyte and sugar-free Gatorade's. You can take Tylenol and ibuprofen for headaches. You are also being prescribed Zofran to help with nausea. Follow-up with your primary care physician if symptoms do not improve. If you develop any new or worsening symptoms, or if you become concerned for your health for any reason, return to the emergency department for evaluation. Clinical Impressions Clinical Impression: Headache, Arm pain, left, Nausea Print Language Print Language: [place] Discharge ED Provider: Gerardo Mix Adult HPI General Chief complaint: PAIN Stated complaint: High HR;BP; Pain in L arm; Headache Time Seen by Provider: 11/26/24 09:20 Mode of Arrival: Ambulatory Source of Information: Patient Description of Symptoms (Recalled from ER Triage Doc. by RN): pt presents to ED with c/o nausea, vomitting ongoing for 2-3 weeks. pt reports left arm bicep pain intermittent for the past 3 days. pt rpeorts low heart rate reading this am when he went to see the nurse at work. pt reports that he was dizzy when he was nauseous and vomitted this am. pt reports that he also had felt like his blood pressure is making his head feel like its going to pop off . History of Present Illness HPI narrative: Alexis Bettencourt is a 49-year-old male with a past medical history of hypothyroidism status post thyroidectomy who presents to the emergency department for complaints of 2 weeks of headache as well as nausea. He also has had intermittent left arm pain. He denies any chest pain or shortness of breath. He states that due to his prolonged symptoms, his work wanted him to come and get evaluated. He states that his headache is throughout his entire scalp but denies any vision changes or numbness or weakness. He has not taken any Tylenol or ibuprofen for his headaches. He believes that he is staying hydrated and is drinking lots of water and hydration popsicles and only 1 soda a day. He is a mechanic/welder. Related Data Previous Rx's ?Medication ?Instructions ?Recorded levothyroxine 150 mcg tablet 150 mcg PO DAILY #30 tabs 12/07/23 dextran 70-hypromellose eye drops 2 drp ophthalmic (ey e) QID 5 days 04/13/24 in a dropperette (Artificial Tears #32 ea (PF) drops in a dropperette) erythromycin 5 mg/gram (0.5 %) eye 1 applic ophthalmic (eye) Q4H 7 04/13/24 ointment days #3.5 grams ondansetron 4 mg disintegrating 4 mg PO Q6H PRN nausea and 11/26/24 tablet vomiting #14 tabs Allergies Allergy/AdvReac Type Severity Reaction Status Date / Time No Known Allergies Allergy Verified 12/05/23 15:43 [facility] Disclaimer: The information contained in this section may have been updated after the patient was seen, as this information can be updated by other users. Social History Smoking Status: Current some day smoker tobacco type: smokeless tobacco alcohol intake: never current occupational status: other Travel in the last 8 weeks?: None Have you lived/traveled outside US in past 30 days?: No Contact w/someone who lives/traveled outside US past 30 days?: No Exposure to someone with infectious disease in past 14 days?: No Do you have a fever (greater than 100.4 F or 38 C)?: No Have you tested positive for COVID-19?: No Exposed to someone with COVID-19 in past 14 days?: No Do you have a sore throat?: No Do you have a cough?: No Do you have any weakness?: No Do you have any diarrhea?: No Are you experiencing any unusual bleeding?: No Do you have any muscle aches/pain?: Yes Do you have any abdominal pain?: No Are you experiencing loss of taste or smell?: No Other Medical History Have you received the Flu Vaccine for this season: No Have you received the Pneumonia Vaccine: No ROS Obtained: Yes Systems reviewed as appropriate & no additional complaints except as documented Physical Exam General General appearance: alert and in no apparent distress Head Head exam: atraumatic Eye Eye exam: Present normal appearance, PERRL and EOMI ENT ENT exam: Present normal external ear exam Neck Neck exam: Present full ROM Chest Chest inspection: Present symmetric chest wall rise Respiratory Respiratory exam: Present normal lung sounds bilaterally; Absent respiratory distress Cardiovascular Cardiovascular exam: Present regular rate and normal rhythm Abdominal Exam Abdominal exam: Present soft; Absent tenderness or guarding exam: Present deferred Extremities Exam Extremities exam: Present normal inspection Back Exam Back exam: Present normal inspection Neurological Exam Neurological exam: Present alert and oriented X3 Psychiatric Psychiatric exam: Present normal affect Skin Skin exam: Present warm and dry Medical Decision Making Medical Records Screening: Per USPSTF and CDC recommendations, given the prevalence of disease in our region, it is our hospital?s policy to screen for HIV and viral Hepatitis for all patients aged 18 and over and those with ongoing risk factors. Ralph Inquiry Pt receiving controlled substance: No Vital Signs: 11/26/24 09:09 11/26/24 09:14 11/26/24 09:40 Temperature 97.9 F Temperature Source Oral Pulse Rate 55 L 52 L Pulse Rate [Left Radial] 53 L Respiratory Rate 21 Blood Pressure 147/93 H 129/81 Blood Pressure [Right Arm] 147/93 H Blood Pressure Mean [Right Arm] 111 Blood Pressure Source [Right Arm] Automatic Cuff Blood Pressure Position [Right Arm] Supine 02 Sat by Pulse Oximetry 98 97 95 Oxygen Delivery Method Room Air 11/26/24 10:00 11/26/24 10:20 11/26/24 10:30 Temperature Temperature Source Pulse Rate 46 L 45 L 45 L Pulse Rate [Left Radial] Respiratory Rate Blood Pressure 127/79 130/88 130/88 Blood Pressure [Right Arm] Blood Pressure Mean [Right Arm] Blood Pressure Source [Right Arm] Blood Pressure Position [Right Arm] 02 Sat by Pulse Oximetry 96 97 97 Oxygen Delivery Method 11/26/24 10:40 11/26/24 11:01 11/26/24 11:21 Temperature Temperature Source Pulse Rate 42 L 43 L 45 L Pulse Rate [Left Radial] Respiratory Rate Blood Pressure 118/82 123/78 115/75 Blood Pressure [Right Arm] Blood Pressure Mean [Right Arm] Blood Pressure Source [Right Arm] Blood Pressure Position [Right Arm] 02 Sat by Pulse Oximetry 100 98 99 Oxygen Delivery Method Lab Data Lab Results 11/26/24 09:19: WBC 8.7, RBC 4.36 L, Hgb 12.9 L, Hct 38.1 L, MCV 87.4, MCH 29.6, MCHC 33.9, RDW 13.8, Plt Count 226, MPV 10.1, Neut % (Auto) 72.2, Lymph % (Auto) 20.3, [place] % (Auto) 5.3, Eos % (Auto) 1.0, Baso % (Auto) 0.7, Neut # (Auto) 6.3, Lymph # (Auto) 1.8, [place] # (Auto) 0.5, Eos # (Auto) 0.1, Baso # (Auto) 0.1, Sodium 136, Potassium 3.6, Chloride 102, Carbon Dioxide 27, Anion Gap 10.6, BUN 20, Creatinine 1.40 H, Estimated Creat Clear 92, Estimated GFR 54 L, Est GFR ( Amer) 66, Glucose 105 H, Calcium 9.4, Total Bilirubin 0.6, AST 34, ALT 25, Alkaline Phosphatase 72, Troponin I < 0.01, NT-Pro-B Natriuret Pep < 20.0, Total Protein 7.5, Albumin 4.2, Globulin 3.3 H, Albumin/Globulin Ratio 1.3, HCV Ab WARNER w/Rflx PCR Qn Reactive, HIV Ag/Ab Combo Qual Negative 11/26/24 09:40: Urine Color Yellow, Urine Appearance Clear, Urine pH 6.0, Ur Specific [place] <= 1.005, Urine Protein Negative, Urine Glucose (UA) Negative, Urine Ketones Negative, Urine Blood Negative, Urine Nitrate Negative, Urine Bilirubin Negative, Urine Urobilinogen 0.2, Ur Leukocyte Esterase Negative, Urine RBC None, Urine WBC None, Ur Squamous Epith Cells None, Urine Bacteria None 11/26/24 09:19 11/26/24 09:19 Orders (Tests/Meds): ED MEDICATIONS Generic Name Dose Route Start Last Admin Trade Name Freq PRN Reason Stop Dose Admin Lactated Ringer's 1,000 mls @ 150 mls/hr 11/26/24 09:30 11/26/24 09:46 Lactated Ringer's 1000 Ml Bag IV 12/26/24 09:29 150 mls/hr .[id number] TIA Administration Discontinued Medications Generic Name Dose Route Start Last Admin Trade Name Dwayne PRN Reason Stop Dose Admin Acetaminophen 1,000 mg 11/26/24 09:26 11/26/24 09:46 Acetaminophen 500mg Tab PO 11/26/24 09:27 1,000 mg ONCE ONE Administration Ibuprofen 600 mg 11/26/24 09:26 11/26/24 09:46 Ibuprofen 600 Mg Tablet PO 11/26/24 09:27 600 mg ONCE ONE Administration Ondansetron HCl 4 mg 11/26/24 09:26 11/26/24 09:45 Ondansetron 4mg/2ml Vial IV 11/26/24 09:27 4 mg ONCE ONE Administration ORDERS Category Date Time Status CXR 2 view (NOT portable) [XR chest 2V] Stat Exams 11/26/24 09:26 Completed BNP [NT Pro Brain Natriuretic Pep.] Stat Lab 11/26/24 09:19 Completed CBC w/Auto Diff [Complete Blood Count Auto Diff] Stat Lab 11/26/24 09:19 Completed CMP [Comprehensive Metabolic Panel] Stat Lab 11/26/24 09:19 Completed HCV RNA PCR, Quant Stat Lab 11/26/24 09:19 Received HIV Combo Stat Lab 11/26/24 09:19 Completed Hepatitis C Ab Qual. W/ RFX Stat Lab 11/26/24 09:19 Completed Troponin I Q3H Lab 11/26/24 12:30 Ordered Troponin I Q3H Lab 11/26/24 15:30 Ordered Troponin I Stat Lab 11/26/24 09:19 Completed UA [Urinalysis and Microscopic] Stat Lab 11/26/24 09:40 Completed ECG Data Tracing #1: I reviewed this ECG and interpreted as documented below: Sinus bradycardia with a ventricular rate of [address] elevation or depression. No T wave inversions. QTc normal at 377 Medical Decision Narrative: Alexis Bettencourt is a 49-year-old male with a past medical history of hypothyroidism status post thyroidectomy who presents to the emergency department for complaints of 2 weeks of headache as well as nausea. He also has had intermittent left arm pain. He denies any chest pain or shortness of breath. He states that due to his prolonged symptoms, his work wanted him to come and get evaluated. He states that his headache is throughout his entire scalp but denies any vision changes or numbness or weakness. He has not taken any Tylenol or ibuprofen for his headaches. He believes that he is staying hydrated and is drinking lots of water and hydration popsicles and only 1 soda a day. He is a mechanic/welder. On arrival, patient is bradycardic into the 50s but normotensive. Breathing comfortably on room air with appropriate oxygen saturation. Physical exam, as stated above, revealed an overall well-appearing male in no distress. He is alert, oriented and has no focal neurological deficits. PERRLA. Cardiopulmonary exam reveals no murmurs, wheezing, rales or rhonchi. The remainder of his physical exam is grossly unremarkable. Differential diagnosis includes, but is not limited to: ACS, pneumonia, pneumothorax, tension headache, migraine headache, electrolyte derangement, dehydration, metabolic derangement, among others. The most morbid conditions were considered and workup was based on these. Patient was treated with 1 g of oral Tylenol, 6 oh milligrams ibuprofen orally, 4 mg IV Zofran and 1 L lactated ringer. Workup in the emergency department included: EKG, BNP, CBC with differential, troponin, CMP, two-view chest x-ray, urinalysis Chest x-ray interpreted by me personally. No focal consolidation, no pneumothorax, no widening of the mediastinum. See final radiology report for details. EKG without evidence of ischemia. See interpretation above Workup showed no leukocytosis, hemoglobin stably low at 12.9, hematocrit 38.1. Creatinine is elevated at 1.4 with normal BUN (this appears to be patient's baseline). Electrolytes within normal limits. Liver enzymes within normal limits. Initial troponin less than 0.01. BNP normal at less than 20. Urinalysis without evidence of infection, protein or blood. On reassessment, patient reports resolution of his headache and overall states that he is feeling much better and is eager to go home. Given his unremarkable workup today and improvement of symptoms, so that he is appropriate for discharge at this time. He was encouraged to follow with his primary care physician. He has been prescribed Zofran to help with nausea. He was instructed to take Tylenol and ibuprofen to help with symptoms. He was encouraged to hydrate well by drinking plenty of fluids, including water, sugar- free Gatorade and Pedialyte. Return precautions were given. All questions were answered. He demonstrated understanding and was in agreement this plan. He was then discharged with the emergency department in stable condition peer Critical Care Critical Care Time Critical Care Time: No
--- NOTE | 2024-11-26 09:26 | XR_ITS ---
FINAL REPORT CLINICAL HISTORY: Left arm pain COMPARISON: 02/27/2023 FINDINGS: PA and lateral views of the chest were obtained. The cardiac and mediastinal silhouettes are within normal limits. The medial left basilar opacity noted on the prior chest x-ray of 2022 is stable, and likely represents a scar. There is no pleural effusion or pneumothorax. No acute osseous abnormality is identified. IMPRESSION: No radiographic evidence of acute cardiac or pulmonary disease. Reviewed, Interpreted and Dictated by Adeline Garber MD Transcribed by Radha Ramos Authenticated and [facility]
[2024-11-26 09:45] LABS: Microscopic, Urine URINE MICROSCOPIC (MICROSCOPIC)
[2024-11-26] MEDS: ONDANSETRON 4MG/2ML VIAL 4 MG IV (09:45)
[2024-11-26] MEDS: IBUPROFEN 600 MG TABLET PO (09:46)
[2024-11-26] MEDS: ACETAMINOPHEN 500MG TAB 1000 MG PO (09:46)
[2024-11-26] MEDS: LACTATED RINGERS 1000ML 1,000 ML 150 ML IV (09:46)
[2024-11-26 10:12] LABS: Bilirubin,Urine Negative (Negative); Color,Urine Yellow (Yellow); Glucose,Urine (UA) Negative (Negative); Ketones,Urine Negative (Negative); PH,Urine 6.0 (5.0-8.5); Protein,Urine Negative (Negative); Specific Gravity, Urine <= 1.005 (1.005-1.030)
[2024-11-26 10:13] LABS: Leukocyte Esterase,Urine Negative (Negative); Urobilinogen,Urine 0.2 EU/dl (0.2)
[2024-11-26 10:16] LABS: Hematocrit 38.1 % (42.0-52.0); Hemoglobin 12.9 g/dL (14.1-18.0); Red Blood Count 4.36 M/mm3 (4.60-6.20); White Blood Count 8.7 K/mm3 (4.8-10.8)
[2024-11-26 10:17] LABS: Immature Granulocytes % 0.5 %; Mean Corpuscular HGB Conc 33.9 g/dL (31.8-35.4); Mean Corpuscular Hemoglobin 29.6 pg (27.0-31.2); Mean Corpuscular Volume 87.4 fl (80-94); Nucleated Red Blood Cells % 0 %; Platelet Count 226 K/mm3 (142-424); Red Cell Distribution Width-SD 44.1 fL
[2024-11-26 10:19] LABS: Anion Gap 10.6 mEq/L (5-15); Carbon Dioxide 27 mmol/L (22.0-30.0); Chloride 102 mmol/L (98-107); NT Pro Brain Natriuretic Pep. < 20.0 pg/mL (0-125); Potassium 3.6 mmoL/L (3.5-5.1); Sodium 136 mmol/L (136-145); Troponin I < 0.01 ng/ml (0.00-0.034)
[2024-11-26 10:20] LABS: Alanine Aminotransferase 25 U/L (12-78); Albumin Level 4.2 g/dl (3.5-5.0); Albumin/Globulin Ratio 1.3 (1.1-1.8); Alkaline Phosphatase 72 U/L (38-126); Aspartate Amino Transferase 34 U/L (17-59); Bilirubin,Total 0.6 mg/dl (0.2-1.3); Blood Urea Nitrogen 20 mg/dl (9-20); Calcium 9.4 mg/dl (8.4-10.2); Creatinine Clearance Estimated 92 mL/min (50-200); Creatinine,Serum 1.40 mg/dl (0.66-1.25); Estimated Glomerular Filt Rate 54 ml/min (>60); GFR (African American) 66 ML/MIN (>60); Globulin 3.3 g/dL (1.3-3.2); Glucose 105 mg/dl (74-100); Total Protein,Serum 7.5 g/dl (6.3-8.2)
[2024-11-26 10:59] LABS: Hepatitis C Ab Qual. W/ RFX REACTIVE (Negative)
== END 2024-11-26 11:52 | disposition home or self-care (01) ==
PROVIDERS: Emergency Provider Student in an Organized Health Care Education/Training Program
DX: M79.602 Pain in left arm (principal); R11.0 Nausea; R51.9 Headache, unspecified; E03.9 Hypothyroidism, unspecified; F17.210 Nicotine dependence, cigarettes, uncomplicated
CPT/HCPCS: 71046; 80053; 81001; 83880; 84484; 85025; 86803; 87389; 87522; 93005; 96361; 96374; 99285; J2405; J7120

== ENCOUNTER 2025-01-29 15:44 | Outpatient (CLI) | payer OTHER, SELFPAY ==
--- OUTSIDE RECORDS SUMMARY | 2025-01-29 15:46 | XMS_ITS | Clinical Summary ---
Author Organization [facility] Address [address] [place] [address] Phone Care Team Providers Care Quarry Supervisor [employer]ension Stone Name Role Phone Karl Penn Ud, MD Unavailable Allergies No known active allergies Medications LEVOthyroxine [...] on file Sexual Orientation Not on file Last Filed Vital Signs Vital Sign Reading [...] COVID-19 Vaccine (1 - 2023-2 5 season) 2024 Influenza Vaccine (#1) 2024 , 07/11/2017 (Declined) [...] Lifestyle No Amalia Stone RN Care Teams Quarry Supervisor [employer]ension Stone Relationship Specialty Start Date End Date Karl Penn Ud, MD [address] [place] [address] Internal Medicine-Nephrology 03/14/18
[2025-01-29 17:32] LABS: Free T4 (Free Thyroxine) 0.31 ng/dl (0.78-2.19)
[2025-01-29 18:29] LABS: Thyroid Stimulating Hormone 117.00 uIU/mL (0.465-4.68)
== END 2025-01-29 23:59 | disposition home or self-care (01) ==
LOC: LAB 15:44
PROVIDERS: PCP Nurse Practitioner Family; Visit Provider Nurse Practitioner Family
DX: E03.9 Hypothyroidism, unspecified (principal)
CPT/HCPCS: 36415; 84439; 84443

== ENCOUNTER 2025-03-13 16:01 | Outpatient (CLI) | payer OTHER, SELFPAY ==
[2025-03-13 18:13] LABS: Free T4 (Free Thyroxine) 1.21 ng/dl (0.78-2.19)
[2025-03-13 18:28] LABS: Thyroid Stimulating Hormone 5.49 uIU/mL (0.465-4.68)
== END 2025-03-13 23:59 | disposition home or self-care (01) ==
LOC: LAB 16:01
PROVIDERS: PCP Nurse Practitioner Family; Visit Provider Nurse Practitioner Family
DX: E03.9 Hypothyroidism, unspecified (principal)
CPT/HCPCS: 36415; 84439; 84443